=== PATIENT | female | born 1945 ===

== ENCOUNTER 2018-03-30 12:34 | Inpatient (IN) ==
[2018-03-30] MEDS ORDERED: diphenhydrAMINE 50 MG/1 ML VIAL IV ONE (15:11)
[2018-03-30 15:30] LABS: ABG Base Excess 9.4 MMOL/L (-2.5-2.5); ABG HCO3 33.1 MMOL/L (20-26); ABG Oxygen Saturation 96.4 % (95-100); ABG PCO2 57.8 MM HG (35-48); ABG PH 7.407 (7.35-7.45); ABG PO2 82.5 MM HG (80-95); ABG TCO2 31.9 MMOL/L (23-27); Allen Test Positive
[2018-03-30 15:59] LABS: Basophils % 0.5 % (0.0-0.8); Eosinophils # 0.2 10*3/uL (0.0-0.87); Hematocrit 38.8 VOL% (35.7-47.0); Hemoglobin 12.7 GM/DL (12.0-16.0); Immature Granulocytes Absolute 0.07 #; Lymphocytes # 1.2 10*3/uL (1.4-4.0); Lymphocytes % 16.9 % (21.3-54.2); Mean Corpuscular HGB Conc 32.7 GM/DL (32-36); Mean Corpuscular Hemoglobin 32 PG (27-34); Mean Corpuscular Volume 98.5 FL (87-102); Mean Platelet Volume 9.8 FL (9.6-12.0); Monocytes # 0.7 10*3/uL (0.11-0.8); Monocytes % 9.8 % (1.7-12.7); Neutrophils % 68.8 % (38.7-73.9); Platelet Count 171 T/CUMM (130-400); Red Blood Count 3.94 MC/CUMM (3.8-5.5); Red Cell Distribution Width 12.7 % (9.3-17.3); White Blood Count 7.3 T/CUMM (4-12)
[2018-03-30] MEDS ORDERED: DEXTROSE 50% 25 GM/50 ML VIAL IV PRN ×2 (16:13→17:55)
[2018-03-30] MEDS ORDERED: LACTULOSE 20 GM/30 ML UDCUP PO PRN (16:13)
[2018-03-30] MEDS ORDERED: DOCUSATE SODIUM 100 MG CAPSULE PO PRN (16:13)
[2018-03-30] MEDS ORDERED: GLUCAGON 1 MG VIAL IM PRN ×2 (16:13→17:55)
[2018-03-30] MEDS ORDERED: ACETAMINOPHEN 325 MG TABLET PO PRN (16:13)
[2018-03-30] MEDS ORDERED: MORPHINE 4 MG/1 ML VIAL IV PRN (16:13)
[2018-03-30] MEDS ORDERED: ONDANSETRON 4 MG/2 ML VIAL IV PRN (16:13)
[2018-03-30 16:30] LABS: Alanine Aminotransferase 19 U/L (13-56); Albumin 2.7 G/DL (3.4-5.0); Alkaline Phosphatase 222 U/L (45-117); Aspartate Amino Transferase 17 U/L (0-37); Blood Urea Nitrogen 13 MG/DL (7-18); Calcium 9.2 MG/DL (8.5-10.1); Glucose 272 MG/DL (74-106); Osmolality,Calculated 282.8 MOS/KG (273-304); Potassium 4.6 MMOL/L (3.5-5.1); Sodium 137 MMOL/L (136-145); Total Protein 7.2 G/DL (6.4-8.3); Troponin I Only 0.018 NG/ML (0.00-0.045)
[2018-03-30] MEDS ORDERED: ENOXAPARIN 100 MG/ML SYRINGE SUBCUT SCH (16:30)
[2018-03-30] MEDS ORDERED: FUROSEMIDE 40 MG/4 ML VIAL IV ONE (17:11)
[2018-03-30] MEDS ORDERED: ALBUTEROL 2.5 MG/3 ML NEB RESP TX PRN (17:12)
[2018-03-30] MEDS ORDERED: SENNA 8.6 MG TABLET PO PRN (17:12)
[2018-03-30] MEDS: INSULIN REGULAR 100 UNIT/ML SUBCUT SCH ×2 (18:04→20:55)
[2018-03-30] MEDS: INSULIN LISPRO 100 UNIT/ML SUBCUT SCH (18:07)
[2018-03-30] MEDS: metFORMIN 500 MG TABLET PO SCH (18:40)
[2018-03-30] MEDS: CALCIUM (CARBONATE)/VITAMIN D 600 MG-400 UNIT TABLET PO SCH (20:55)
[2018-03-30] MEDS: DOCUSATE SODIUM 100 MG CAPSULE PO SCH (20:56)
[2018-03-31] MEDS ORDERED: LEVOTHYROXINE 200 MCG TABLET PO SCH (07:00)
[2018-03-31] MEDS: INSULIN REGULAR 100 UNIT/ML SUBCUT SCH ×4 (08:25→21:47)
[2018-03-31] MEDS ORDERED: ENOXAPARIN 40 MG/0.4 ML SYRINGE SUBCUT SCH (09:00)
[2018-03-31] MEDS: ENOXAPARIN 40 MG/0.4 ML SYRINGE SUBCUT SCH (09:21)
[2018-03-31] MEDS: metFORMIN 500 MG TABLET PO SCH ×2 (09:21→17:34)
[2018-03-31] MEDS: MONTELUKAST 10 MG TABLET PO SCH (09:21)
[2018-03-31] MEDS: CALCIUM (CARBONATE)/VITAMIN D 600 MG-400 UNIT TABLET PO SCH ×2 (09:22→20:37)
[2018-03-31] MEDS: DOCUSATE SODIUM 100 MG CAPSULE PO SCH ×2 (09:22→20:37)
[2018-03-31] MEDS: PANTOPRAZOLE 40 MG TABLET PO SCH (09:22)
[2018-03-31] MEDS: SPIRONOLACTONE 25 MG TABLET PO SCH (09:22)
[2018-03-31] MEDS: INSULIN LISPRO 100 UNIT/ML SUBCUT SCH ×2 (09:25→17:34)
[2018-03-31] MEDS: INSULIN GLARGINE 100 UNIT/ML SUBCUT SCH (21:47)
[2018-04-01] MEDS: LEVOTHYROXINE 200 MCG TABLET PO SCH (05:51)
[2018-04-01 07:07] LABS: Basophils % 0.4 % (0.0-0.8); Eosinophils # 0.2 10*3/uL (0.0-0.87); Eosinophils % 3.6 % (0.00-10.9); Hematocrit 39.8 VOL% (35.7-47.0); Hemoglobin 13.5 GM/DL (12.0-16.0); Immature Granulocytes Absolute 0.07 #; Lymphocytes # 1.2 10*3/uL (1.4-4.0); Lymphocytes % 18.3 % (21.3-54.2); Mean Corpuscular HGB Conc 33.9 GM/DL (32-36); Mean Corpuscular Hemoglobin 32 PG (27-34); Mean Corpuscular Volume 93.6 FL (87-102); Monocytes # 0.9 10*3/uL (0.11-0.8); Monocytes % 13.2 % (1.7-12.7); Neutrophils # 4.3 10*3/uL (1.4-7.4); Neutrophils % 63.5 % (38.7-73.9); Platelet Count 198 T/CUMM (130-400); Red Blood Count 4.25 MC/CUMM (3.8-5.5); Red Cell Distribution Width 13.3 % (9.3-17.3); White Blood Count 6.7 T/CUMM (4-12)
[2018-04-01 07:25] LABS: Albumin 2.7 G/DL (3.4-5.0); Bilirubin,Total 0.9 MG/DL (0.2-1.0); Total Protein 6.6 G/DL (6.4-8.3)
[2018-04-01 07:26] LABS: Osmolality,Calculated 271.1 MOS/KG (273-304); Potassium 4.3 MMOL/L (3.5-5.1)
[2018-04-01] MEDS: INSULIN REGULAR 100 UNIT/ML SUBCUT SCH ×5 (09:13→22:43)
[2018-04-01] MEDS: metFORMIN 500 MG TABLET PO SCH ×2 (10:04→17:36)
[2018-04-01] MEDS: SPIRONOLACTONE 25 MG TABLET PO SCH (10:05)
[2018-04-01] MEDS: DOCUSATE SODIUM 100 MG CAPSULE PO SCH ×2 (10:05→22:42)
[2018-04-01] MEDS: MONTELUKAST 10 MG TABLET PO SCH (10:05)
[2018-04-01] MEDS: CALCIUM (CARBONATE)/VITAMIN D 600 MG-400 UNIT TABLET PO SCH ×2 (10:05→22:42)
[2018-04-01] MEDS: ENOXAPARIN 40 MG/0.4 ML SYRINGE SUBCUT SCH (10:05)
[2018-04-01] MEDS: PANTOPRAZOLE 40 MG TABLET PO SCH (10:05)
[2018-04-01] MEDS: INSULIN LISPRO 100 UNIT/ML SUBCUT SCH ×2 (10:06→17:36)
[2018-04-01] MEDS ORDERED: FUROSEMIDE 40 MG/4 ML VIAL IV ONE (10:51)
[2018-04-01] MEDS: INSULIN GLARGINE 100 UNIT/ML SUBCUT SCH (22:42)
[2018-04-02] MEDS: LEVOTHYROXINE 200 MCG TABLET PO SCH (06:53)
[2018-04-02 07:34] LABS: Basophils % 0.5 % (0.0-0.8); Eosinophils # 0.3 10*3/uL (0.0-0.87); Hemoglobin 14.4 GM/DL (12.0-16.0); Immature Granulocytes % 0.9 %; Immature Granulocytes Absolute 0.07 #; Lymphocytes # 2.3 10*3/uL (1.4-4.0); Lymphocytes % 27.9 % (21.3-54.2); Mean Corpuscular HGB Conc 34.3 GM/DL (32-36); Mean Corpuscular Hemoglobin 32 PG (27-34); Mean Corpuscular Volume 93.1 FL (87-102); Mean Platelet Volume 9.5 FL (9.6-12.0); Monocytes # 0.9 10*3/uL (0.11-0.8); Monocytes % 11.4 % (1.7-12.7); Neutrophils # 4.5 10*3/uL (1.4-7.4); Neutrophils % 55.3 % (38.7-73.9); Platelet Count 203 T/CUMM (130-400); Red Blood Count 4.51 MC/CUMM (3.8-5.5); Red Cell Distribution Width 13.2 % (9.3-17.3); White Blood Count 8.1 T/CUMM (4-12)
[2018-04-02 08:05] LABS: Albumin 2.9 G/DL (3.4-5.0); Bilirubin,Total 2.1 MG/DL (0.2-1.0); Calcium 8.6 MG/DL (8.5-10.1); Osmolality,Calculated 269.2 MOS/KG (273-304); Potassium 4.4 MMOL/L (3.5-5.1); Total Protein 7.3 G/DL (6.4-8.3)
[2018-04-02] MEDS: INSULIN REGULAR 100 UNIT/ML SUBCUT SCH ×2 (08:37→12:54)
[2018-04-02] MEDS: MONTELUKAST 10 MG TABLET PO SCH (09:41)
[2018-04-02] MEDS: SPIRONOLACTONE 25 MG TABLET PO SCH (09:41)
[2018-04-02] MEDS: CALCIUM (CARBONATE)/VITAMIN D 600 MG-400 UNIT TABLET PO SCH (09:42)
[2018-04-02] MEDS: INSULIN LISPRO 100 UNIT/ML SUBCUT SCH (09:42)
[2018-04-02] MEDS: metFORMIN 500 MG TABLET PO SCH (09:42)
[2018-04-02] MEDS: PANTOPRAZOLE 40 MG TABLET PO SCH (09:42)
[2018-04-02] MEDS: DOCUSATE SODIUM 100 MG CAPSULE PO SCH (09:42)
[2018-04-02] MEDS: ENOXAPARIN 40 MG/0.4 ML SYRINGE SUBCUT SCH (09:42)
[2018-04-02 12:40] VITALS: BP 154/81
== END 2018-04-02 14:45 | disposition swing bed (61) | DRG 204 ==
LOC: N.ICU 14:18 → SUATTDRO 14:54 → N.5E 03-31 11:55
PROVIDERS: ADMIT Internal Medicine; ATTEND Internal Medicine

== ENCOUNTER 2018-12-06 19:48 | Inpatient (IN) ==
[2018-12-06] MEDS ORDERED: ALBUTEROL 2.5 MG/3 ML NEB RESP TX PRN (22:12)
[2018-12-06] MEDS ORDERED: ACETAMINOPHEN 325 MG TABLET PO PRN (22:12)
[2018-12-06] MEDS ORDERED: DEXTROSE 50% 25 GM/50 ML VIAL IV PRN ×2 (22:12)
[2018-12-06] MEDS ORDERED: GLUCAGON 1 MG VIAL IM PRN ×2 (22:12)
[2018-12-06] MEDS ORDERED: MAGNESIUM SULF RIDER 2 GM in PREMIX 1 EACH IV PRN (22:42)
[2018-12-06] MEDS ORDERED: MAGNESIUM SULF RIDER 4 GM in PREMIX 1 EACH IV PRN (22:42)
[2018-12-06] MEDS: CEFTAROLINE 600 MG in SODIUM CHLORIDE 0.9% 100 ML IV SCH (23:42)
[2018-12-07] MEDS: ALBUTEROL/IPRATROPIUM 3 ML NEB RESP TX SCH ×4 (00:15→20:02)
[2018-12-07] MEDS: INSULIN REGULAR 100 UNIT/ML SUBCUT SCH ×4 (07:10→20:07)
[2018-12-07 07:25] LABS: Albumin 2.8 G/DL (3.4-5.0); Bilirubin,Total 0.5 MG/DL (0.2-1.0); Calcium 8.4 MG/DL (8.5-10.1); Osmolality,Calculated 283.1 MOS/KG (273-304); Potassium 3.9 MMOL/L (3.5-5.1); Total Protein 7.4 G/DL (6.4-8.3)
[2018-12-07 07:32] LABS: Basophils % 0.4 % (0.0-0.8); Eosinophils # 0.1 10*3/uL (0.0-0.87); Hematocrit 41.6 VOL% (35.7-47.0); Hemoglobin 12.2 GM/DL (12.0-16.0); Immature Granulocytes % 0.7 %; Immature Granulocytes Absolute 0.04 #; Lymphocytes # 0.9 10*3/uL (1.4-4.0); Lymphocytes % 15.4 % (21.3-54.2); Mean Corpuscular HGB Conc 29.3 GM/DL (32-36); Mean Corpuscular Hemoglobin 27 PG (27-34); Mean Corpuscular Volume 92.7 FL (87-102); Mean Platelet Volume 10.3 FL (9.6-12.0); Monocytes # 0.6 10*3/uL (0.11-0.8); Monocytes % 10.7 % (1.7-12.7); Neutrophils # 3.9 10*3/uL (1.4-7.4); Neutrophils % 70.8 % (38.7-73.9); Platelet Count 139 T/CUMM (130-400); Red Blood Count 4.49 MC/CUMM (3.8-5.5); Red Cell Distribution Width 14.1 % (9.3-17.3); White Blood Count 5.5 T/CUMM (4-12)
[2018-12-07] MEDS: ENOXAPARIN 40 MG/0.4 ML SYRINGE SUBCUT SCH (08:31)
[2018-12-07] MEDS: FUROSEMIDE 40 MG/4 ML VIAL IV SCH ×2 (08:32→16:05)
[2018-12-07] MEDS: predniSONE 20 MG TABLET PO SCH (08:32)
[2018-12-07] MEDS: BUDESONIDE/FORMOTEROL 160-4.5 INHALER 6 GM INH SCH ×2 (08:32→20:08)
[2018-12-07] MEDS ORDERED: PANTOPRAZOLE 40 MG TABLET PO SCH (09:00)
[2018-12-07] MEDS ORDERED: INFLUENZA VIRUS VACCINE 0.5 ML SYRINGE IM ONE (09:00)
[2018-12-07 11:00] LABS: Apearance,Urine CLEAR (Clear); Bacteria,Urine Occasional /HPF (Few); Bilirubin,Urine Negative (Negative); Blood, Urine Negative (Negative); Glucose,Urine (UA) Negative (Negative); Hyaline Casts,Urine 3 /LPF (0-3); Ketones,Urine Negative (Negative); Nitrite,Urine Negative (Negative); Protein,Urine Negative; Squamous Epithelial Cell,Urine Occasional /HPF (0-10); Urine Color Straw (Yellow); Urine Specific Gravity 1.005 (1.001-1.035); Urine Urobilinogen < 2.0 EU/DL (0.2-1.0); WBC,Urine <1 /HPF (0-6)
[2018-12-07] MEDS: CEFTAROLINE 600 MG in SODIUM CHLORIDE 0.9% 100 ML IV SCH ×2 (11:17→22:34)
[2018-12-08] MEDS: ALBUTEROL/IPRATROPIUM 3 ML NEB RESP TX SCH ×4 (00:33→20:17)
[2018-12-08] MEDS: ENOXAPARIN 40 MG/0.4 ML SYRINGE SUBCUT SCH (08:44)
[2018-12-08] MEDS: FUROSEMIDE 40 MG/4 ML VIAL IV SCH ×2 (08:44→17:37)
[2018-12-08] MEDS: predniSONE 20 MG TABLET PO SCH (08:44)
[2018-12-08] MEDS: BUDESONIDE/FORMOTEROL 160-4.5 INHALER 6 GM INH SCH (08:48)
[2018-12-08] MEDS: INSULIN REGULAR 100 UNIT/ML SUBCUT SCH ×4 (08:49→21:57)
[2018-12-08] MEDS ORDERED: CIPROFLOXACIN/DEXAMETHASONE OTIC SUSP 7.5 ML BOTTLE BOTH EARS SCH (10:00)
[2018-12-08] MEDS: CEFTAROLINE 600 MG in SODIUM CHLORIDE 0.9% 100 ML IV SCH (11:35)
[2018-12-08] MEDS: CIPROFLOXACIN 0.3% OPH SOLN 2.5 ML BOTTLE BOTH EYES SCH ×2 (13:34→22:16)
[2018-12-08] MEDS: DEXAMETHASONE 0.1% OPH SOLN 5 ML BOTTLE BOTH EYES SCH ×2 (13:35→22:16)
[2018-12-08] MEDS: GLIMEPIRIDE 4 MG TABLET PO SCH (17:37)
[2018-12-08] MEDS: metFORMIN 500 MG TABLET PO SCH (17:37)
[2018-12-08] MEDS: MINERAL OIL/PETROLATUM OPH OINT 3.5 GM TUBE BOTH EYES SCH ×2 (17:57→22:03)
[2018-12-08] MEDS: GABAPENTIN 100 MG CAPSULE PO SCH (21:56)
[2018-12-08] MEDS: MOMETASONE/FORMOTEROL 100-5 INHALER 8.8 GM INH SCH (21:57)
[2018-12-08] MEDS: DONEPEZIL 5 MG TABLET PO SCH (21:57)
[2018-12-08] MEDS: INSULIN GLARGINE 100 UNIT/ML SUBCUT SCH (21:58)
[2018-12-09] MEDS: CEFTAROLINE 600 MG in SODIUM CHLORIDE 0.9% 100 ML IV SCH ×2 (00:30→10:17)
[2018-12-09] MEDS: ALBUTEROL/IPRATROPIUM 3 ML NEB RESP TX SCH ×4 (01:34→19:27)
[2018-12-09] MEDS: LEVOTHYROXINE 100 MCG TABLET PO SCH (06:05)
[2018-12-09 06:41] LABS: Calcium 8.1 MG/DL (8.5-10.1); Osmolality,Calculated 290.1 MOS/KG (273-304); Potassium 3.8 MMOL/L (3.5-5.1)
[2018-12-09 06:54] LABS: Albumin 2.8 G/DL (3.4-5.0); Bilirubin,Total 0.9 MG/DL (0.2-1.0); Calcium 8.2 MG/DL (8.5-10.1); Osmolality,Calculated 291.1 MOS/KG (273-304); Potassium 3.7 MMOL/L (3.5-5.1); Risk Ratio 2.71; Total Protein 7.2 G/DL (6.4-8.3)
[2018-12-09 07:27] LABS: Basophils % 0.3 % (0.0-0.8); Eosinophils # 0.1 10*3/uL (0.0-0.87); Hematocrit 41.5 VOL% (35.7-47.0); Immature Granulocytes % 0.3 %; Immature Granulocytes Absolute 0.02 #; Lymphocytes # 1.4 10*3/uL (1.4-4.0); Lymphocytes % 20.1 % (21.3-54.2); Mean Corpuscular HGB Conc 29.4 GM/DL (32-36); Mean Corpuscular Hemoglobin 27 PG (27-34); Mean Corpuscular Volume 92.2 FL (87-102); Mean Platelet Volume 10.6 FL (9.6-12.0); Monocytes # 0.7 10*3/uL (0.11-0.8); Monocytes % 10.9 % (1.7-12.7); Neutrophils # 4.6 10*3/uL (1.4-7.4); Neutrophils % 67.4 % (38.7-73.9); Platelet Count 159 T/CUMM (130-400); Red Cell Distribution Width 13.7 % (9.3-17.3); White Blood Count 6.8 T/CUMM (4-12)
[2018-12-09 07:28] LABS: Hemoglobin 12.2 GM/DL (12.0-16.0)
[2018-12-09] MEDS: INSULIN REGULAR 100 UNIT/ML SUBCUT SCH ×4 (08:08→21:54)
[2018-12-09] MEDS: metFORMIN 500 MG TABLET PO SCH ×2 (10:07→16:20)
[2018-12-09] MEDS: MONTELUKAST 10 MG TABLET PO SCH (10:08)
[2018-12-09] MEDS: METOPROLOL SUCCINATE XL 25 MG TABLET PO SCH (10:08)
[2018-12-09] MEDS: predniSONE 20 MG TABLET PO SCH (10:08)
[2018-12-09] MEDS: LOSARTAN 50 MG TABLET PO SCH (10:08)
[2018-12-09] MEDS: ASPIRIN EC 81 MG TABLET PO SCH (10:08)
[2018-12-09] MEDS: GLIMEPIRIDE 4 MG TABLET PO SCH ×2 (10:08→16:20)
[2018-12-09] MEDS: SPIRONOLACTONE 25 MG TABLET PO SCH (10:08)
[2018-12-09] MEDS: ESCITALOPRAM 10 MG TABLET PO SCH (10:09)
[2018-12-09] MEDS: CALCIUM (CARBONATE)/VITAMIN D 600 MG-400 UNIT TABLET PO SCH (10:09)
[2018-12-09] MEDS: CETIRIZINE 10 MG TABLET PO SCH (10:09)
[2018-12-09] MEDS: FUROSEMIDE 40 MG/4 ML VIAL IV SCH ×2 (10:09→16:21)
[2018-12-09] MEDS: ENOXAPARIN 40 MG/0.4 ML SYRINGE SUBCUT SCH (10:10)
[2018-12-09] MEDS ORDERED: PANTOPRAZOLE 40 MG TABLET PO ONE (10:14)
[2018-12-09] MEDS: PANTOPRAZOLE 40 MG TABLET PO SCH (10:15)
[2018-12-09] MEDS: MOMETASONE/FORMOTEROL 100-5 INHALER 8.8 GM INH SCH ×2 (10:22→21:55)
[2018-12-09] MEDS: MINERAL OIL/PETROLATUM OPH OINT 3.5 GM TUBE BOTH EYES SCH ×3 (10:23→22:00)
[2018-12-09] MEDS: DEXAMETHASONE 0.1% OPH SOLN 5 ML BOTTLE BOTH EARS SCH ×2 (10:25→21:58)
[2018-12-09] MEDS: CIPROFLOXACIN 0.3% OPH SOLN 2.5 ML BOTTLE BOTH EARS SCH ×2 (10:25→23:03)
[2018-12-09] MEDS: GABAPENTIN 100 MG CAPSULE PO SCH (21:54)
[2018-12-09] MEDS: DONEPEZIL 5 MG TABLET PO SCH (21:54)
[2018-12-09] MEDS: INSULIN GLARGINE 100 UNIT/ML SUBCUT SCH (21:55)
[2018-12-10] MEDS: ALBUTEROL/IPRATROPIUM 3 ML NEB RESP TX SCH ×4 (01:08→19:16)
[2018-12-10] MEDS: LEVOTHYROXINE 100 MCG TABLET PO SCH (07:19)
[2018-12-10] MEDS: ASPIRIN EC 81 MG TABLET PO SCH (09:16)
[2018-12-10] MEDS: FUROSEMIDE 40 MG TABLET PO SCH ×2 (09:16→20:13)
[2018-12-10] MEDS: MONTELUKAST 10 MG TABLET PO SCH (09:16)
[2018-12-10] MEDS: METOPROLOL SUCCINATE XL 25 MG TABLET PO SCH (09:16)
[2018-12-10] MEDS: metFORMIN 500 MG TABLET PO SCH ×2 (09:16→20:13)
[2018-12-10] MEDS: CETIRIZINE 10 MG TABLET PO SCH (09:16)
[2018-12-10] MEDS: PANTOPRAZOLE 40 MG TABLET PO SCH (09:16)
[2018-12-10] MEDS: GLIMEPIRIDE 4 MG TABLET PO SCH ×2 (09:16→20:13)
[2018-12-10] MEDS: ESCITALOPRAM 10 MG TABLET PO SCH (09:16)
[2018-12-10] MEDS: CALCIUM (CARBONATE)/VITAMIN D 600 MG-400 UNIT TABLET PO SCH (09:16)
[2018-12-10] MEDS: ENOXAPARIN 40 MG/0.4 ML SYRINGE SUBCUT SCH (09:17)
[2018-12-10] MEDS: INSULIN REGULAR 100 UNIT/ML SUBCUT SCH ×3 (09:17→20:13)
[2018-12-10] MEDS: LOSARTAN 50 MG TABLET PO SCH (09:17)
[2018-12-10] MEDS: predniSONE 20 MG TABLET PO SCH (09:17)
[2018-12-10] MEDS: SPIRONOLACTONE 25 MG TABLET PO SCH (09:17)
[2018-12-10] MEDS: MOMETASONE/FORMOTEROL 100-5 INHALER 8.8 GM INH SCH (09:25)
[2018-12-10] MEDS: CIPROFLOXACIN 0.3% OPH SOLN 2.5 ML BOTTLE BOTH EARS SCH (09:25)
[2018-12-10] MEDS: MINERAL OIL/PETROLATUM OPH OINT 3.5 GM TUBE BOTH EYES SCH ×2 (09:26→14:47)
[2018-12-10] MEDS: DEXAMETHASONE 0.1% OPH SOLN 5 ML BOTTLE BOTH EARS SCH (09:26)
[2018-12-10 11:36] VITALS: BP 132/91
== END 2018-12-10 18:10 | disposition home or self-care (01) | DRG 291 ==
LOC: SUATTDRO 21:15 → N.CC 21:15 → N.2E 12-08 14:59
PROVIDERS: ADMIT Internal Medicine; ATTEND Internal Medicine Cardiovascular Disease

== ENCOUNTER 2019-02-18 12:36 | Inpatient (IN) ==
[2019-02-18] MEDS ORDERED: GLUCAGON 1 MG VIAL IM PRN (15:54)
[2019-02-18] MEDS ORDERED: DEXTROSE 50% 25 GM/50 ML SYRINGE IV PRN (15:54)
[2019-02-18] MEDS ORDERED: ONDANSETRON 4 MG/2 ML VIAL IV PRN (15:54)
[2019-02-18] MEDS ORDERED: DOCUSATE SODIUM 100 MG CAPSULE PO PRN (15:54)
[2019-02-18] MEDS ORDERED: ACETAMINOPHEN 325 MG TABLET PO PRN (15:54)
[2019-02-18] MEDS ORDERED: NITROGLYCERIN SL 0.4 MG TABLET SL PRN (16:00)
[2019-02-18] MEDS ORDERED: FUROSEMIDE 40 MG/4 ML VIAL IV ONE (16:35)
[2019-02-18 16:49] LABS: Risk Ratio 3.27; Thyroid Stimulating Hormone 1.79 uIU/ml (0.358-3.74); VLDL CHOLESTEROL 14.8 MG/DL
[2019-02-18] MEDS: metFORMIN 500 MG TABLET PO SCH (17:10)
[2019-02-18] MEDS: INSULIN LISPRO 100 UNIT/ML SUBCUT SCH ×2 (17:14→22:00)
[2019-02-18] MEDS: MOMETASONE/FORMOTEROL 100-5 INHALER 8.8 GM INH SCH (20:39)
[2019-02-18] MEDS ORDERED: INSULIN GLARGINE 100 UNIT/ML SUBCUT SCH (21:00)
[2019-02-18] MEDS ORDERED: ENOXAPARIN 40 MG/0.4 ML SYRINGE SUBCUT SCH (21:00)
[2019-02-18 21:08] LABS: INR 1.1; PT Patient Result 11.7 SECS; Partial Thromboplastin Time 26.6 SECS (0-40)
[2019-02-19 01:07] LABS: Albumin 2.8 G/DL (3.4-5.0); Bilirubin,Total 0.6 MG/DL (0.2-1.0); Calcium 7.8 MG/DL (8.5-10.1); Potassium 3.8 MMOL/L (3.5-5.1); Total Protein 6.7 G/DL (6.4-8.3)
[2019-02-19 01:08] LABS: Basophils % 0.4 % (0.0-0.8); Eosinophils # 0.2 10*3/uL (0.0-0.87); Eosinophils % 2.9 % (0.00-10.9); Hematocrit 42.4 VOL% (35.7-47.0); Hemoglobin 11.9 GM/DL (12.0-16.0); Immature Granulocytes % 0.2 %; Immature Granulocytes Absolute 0.01 #; Lymphocytes # 1.3 10*3/uL (1.4-4.0); Lymphocytes % 25.1 % (21.3-54.2); Mean Corpuscular HGB Conc 28.1 GM/DL (32-36); Mean Corpuscular Hemoglobin 25 PG (27-34); Mean Corpuscular Volume 88.1 FL (87-102); Mean Platelet Volume 10.3 FL (9.6-12.0); Monocytes # 0.5 10*3/uL (0.11-0.8); Monocytes % 9.9 % (1.7-12.7); Neutrophils # 3.2 10*3/uL (1.4-7.4); Neutrophils % 61.5 % (38.7-73.9); Platelet Count 156 T/CUMM (130-400); Red Blood Count 4.81 MC/CUMM (3.8-5.5); Red Cell Distribution Width 16.7 % (9.3-17.3); White Blood Count 5.2 T/CUMM (4-12)
[2019-02-19] MEDS ORDERED: LEVOTHYROXINE 25 MCG TABLET PO SCH (06:30)
[2019-02-19] MEDS: metFORMIN 500 MG TABLET PO SCH (08:50)
[2019-02-19] MEDS: MOMETASONE/FORMOTEROL 100-5 INHALER 8.8 GM INH SCH (08:52)
[2019-02-19] MEDS: INSULIN LISPRO 100 UNIT/ML SUBCUT SCH ×3 (08:54→16:54)
[2019-02-19] MEDS ORDERED: ESCITALOPRAM 10 MG TABLET PO SCH (09:00)
[2019-02-19] MEDS ORDERED: CALCIUM (CARBONATE)/VITAMIN D 600 MG-400 UNIT TABLET PO SCH (09:00)
[2019-02-19] MEDS ORDERED: MONTELUKAST 10 MG TABLET PO SCH (09:00)
[2019-02-19] MEDS ORDERED: SPIRONOLACTONE 25 MG TABLET PO SCH (09:00)
[2019-02-19] MEDS ORDERED: ASPIRIN CHEW 81 MG TABLET PO SCH (09:00)
[2019-02-19] MEDS ORDERED: PANTOPRAZOLE 40 MG TABLET PO SCH ×2 (09:00)
[2019-02-19 16:11] VITALS: BP 136/65
== END 2019-02-19 16:30 | disposition home or self-care (01) | DRG 204 ==
LOC: N.TELES → SUATTDRO 14:18
PROVIDERS: ADMIT Internal Medicine; ATTEND Internal Medicine

== ENCOUNTER 2019-03-24 11:14 | Inpatient (IN) ==
[2019-03-24] MEDS ORDERED: ACETAMINOPHEN 325 MG TABLET PO PRN (15:06)
[2019-03-24] MEDS ORDERED: ONDANSETRON 4 MG/2 ML VIAL IV PRN (15:06)
[2019-03-24 16:01] LABS: Basophils % 0.5 % (0.0-0.8); Eosinophils # 0.1 10*3/uL (0.0-0.87); Eosinophils % 2.3 % (0.00-10.9); Hematocrit 43.7 VOL% (35.7-47.0); Hemoglobin 11.8 GM/DL (12.0-16.0); Immature Granulocytes % 0.7 %; Immature Granulocytes Absolute 0.04 #; Lymphocytes # 1.2 10*3/uL (1.4-4.0); Lymphocytes % 18.8 % (21.3-54.2); Mean Corpuscular Volume 90.7 FL (87-102); Mean Platelet Volume 10.1 FL (9.6-12.0); Monocytes % 11.6 % (1.7-12.7); Neutrophils % 66.1 % (38.7-73.9); Platelet Count 158 T/CUMM (130-400); Red Blood Count 4.82 MC/CUMM (3.8-5.5); Red Cell Distribution Width 19.3 % (9.3-17.3); White Blood Count 6.1 T/CUMM (4-12)
[2019-03-24 16:18] LABS: Calcium 8.6 MG/DL (8.5-10.1); Osmolality,Calculated 302.3 MOS/KG (273-304)
[2019-03-24] MEDS ORDERED: SODIUM CHLORIDE 0.9% 1,000 ML IV SCH (16:30)
[2019-03-24 16:33] LABS: Eosinophils 3 % (0-10); Lymphocytes 18 % (20-55); Ovalocytes 1+; Platelet Estimate Normal; Segmented Neutrophils 66 % (50-85); Total Cells Counted 100
[2019-03-24 16:34] LABS: Hypochromasia 1+; Polychromasia Few
[2019-03-24] MEDS ORDERED: SODIUM CHLORIDE 0.9% 500 ML IV SCH (16:45)
[2019-03-24] MEDS ORDERED: GLUCAGON 1 MG VIAL IM PRN (16:46)
[2019-03-24] MEDS ORDERED: DEXTROSE 50% 25 GM/50 ML VIAL IV PRN (16:46)
[2019-03-24] MEDS ORDERED: ALBUTEROL/IPRATROPIUM 3 ML NEB RESP TX PRN (16:59)
[2019-03-24 17:02] LABS: Bilirubin,Direct 0.28 MG/DL (0.0-0.20); Bilirubin,Indirect 0.2 MG/DL (0.0-1.0); Bilirubin,Total 0.5 MG/DL (0.2-1.0); Total Protein 7.1 G/DL (6.4-8.3)
[2019-03-24] MEDS: LACTULOSE 20 GM/30 ML UDCUP PO SCH ×2 (18:11→23:28)
[2019-03-24] MEDS: INSULIN LISPRO 100 UNIT/ML SUBCUT SCH (20:47)
[2019-03-25] MEDS: LACTULOSE 20 GM/30 ML UDCUP PO SCH ×5 (05:52→23:33)
[2019-03-25 07:11] LABS: Basophils % 0.3 % (0.0-0.8); Eosinophils # 0.2 10*3/uL (0.0-0.87); Eosinophils % 2.7 % (0.00-10.9); Hematocrit 42.9 VOL% (35.7-47.0); Hemoglobin 11.9 GM/DL (12.0-16.0); Immature Granulocytes % 0.5 %; Immature Granulocytes Absolute 0.03 #; Lymphocytes % 17.4 % (21.3-54.2); Mean Corpuscular HGB Conc 27.7 GM/DL (32-36); Mean Corpuscular Volume 89.9 FL (87-102); Mean Platelet Volume 10.8 FL (9.6-12.0); NRBC # 0.02 10*3/uL; Neutrophils % 68.1 % (38.7-73.9); Platelet Count 168 T/CUMM (130-400); Red Blood Count 4.77 MC/CUMM (3.8-5.5); Red Cell Distribution Width 19.9 % (9.3-17.3)
[2019-03-25 07:18] LABS: Hypochromasia 1+; Ovalocytes Slight; Platelet Estimate Adequate
[2019-03-25 07:33] LABS: Bilirubin,Direct 0.24 MG/DL (0.0-0.20); Bilirubin,Indirect 0.4 MG/DL (0.0-1.0); Bilirubin,Total 0.6 MG/DL (0.2-1.0)
[2019-03-25] MEDS: INSULIN LISPRO 100 UNIT/ML SUBCUT SCH ×4 (07:45→21:25)
[2019-03-25 08:04] LABS: Calcium 8.6 MG/DL (8.5-10.1); Risk Ratio 2.77; Thyroid Stimulating Hormone 0.151 uIU/ml (0.358-3.74); VLDL CHOLESTEROL 19.6 MG/DL
[2019-03-25] MEDS ORDERED: ENOXAPARIN 40 MG/0.4 ML SYRINGE SUBCUT SCH (09:00)
[2019-03-25 14:01] LABS: Apearance,Urine CLOUDY (Clear); Blood, Urine Small mg/dL (Negative); Glucose,Urine (UA) Negative (Negative); Ketones,Urine 5 mg/dL (Negative); Nitrite,Urine Negative (Negative); Protein,Urine 100 MG/DL; Urine Color Amber (Yellow); Urine Specific Gravity 1.023 (1.001-1.035)
[2019-03-25 14:19] LABS: Bilirubin,Urine Small mg/dL (Negative)
[2019-03-25 14:20] LABS: Bacteria,Urine Trace /HPF (Few); Squamous Epithelial Cell,Urine Few /HPF (0-10)
[2019-03-25] MEDS ORDERED: SODIUM CHLORIDE 0.9% 1,000 ML IV SCH (15:00)
[2019-03-25] MEDS: cefTRIAXone 1,000 MG in SYRINGE 1 EACH IV SCH (16:00)
[2019-03-25] MEDS: ESCITALOPRAM 10 MG TABLET PO SCH (21:21)
[2019-03-25] MEDS: DONEPEZIL 5 MG TABLET PO SCH (21:21)
[2019-03-26] MEDS: LACTULOSE 20 GM/30 ML UDCUP PO SCH ×3 (06:32→17:40)
[2019-03-26 07:27] LABS: Calcium 8.2 MG/DL (8.5-10.1); Osmolality,Calculated 307.8 MOS/KG (273-304)
[2019-03-26 07:32] LABS: Albumin 2.9 G/DL (3.4-5.0); Bilirubin,Direct 0.22 MG/DL (0.0-0.20); Bilirubin,Indirect 0.7 MG/DL (0.0-1.0); Bilirubin,Total 0.9 MG/DL (0.2-1.0); Total Protein 6.7 G/DL (6.4-8.3)
[2019-03-26 07:34] LABS: Basophils % 0.7 % (0.0-0.8); Eosinophils # 0.2 10*3/uL (0.0-0.87); Eosinophils % 3.6 % (0.00-10.9); Hematocrit 40.5 VOL% (35.7-47.0); Immature Granulocytes % 0.4 %; Immature Granulocytes Absolute 0.02 #; Mean Corpuscular HGB Conc 27.7 GM/DL (32-36); Mean Corpuscular Volume 89.6 FL (87-102); Mean Platelet Volume 10.4 FL (9.6-12.0); Monocytes % 12.4 % (1.7-12.7); Neutrophils % 65.9 % (38.7-73.9); Platelet Count 153 T/CUMM (130-400); Red Blood Count 4.52 MC/CUMM (3.8-5.5); Red Cell Distribution Width 19.9 % (9.3-17.3); White Blood Count 5.6 T/CUMM (4-12)
[2019-03-26 07:35] LABS: Hemoglobin 11.2 GM/DL (12.0-16.0)
[2019-03-26 07:38] LABS: Platelet Estimate Adequate
[2019-03-26 07:39] LABS: Anisocytosis 1+
[2019-03-26] MEDS: INSULIN LISPRO 100 UNIT/ML SUBCUT SCH ×4 (07:50→20:59)
[2019-03-26] MEDS: ASPIRIN 325 MG TABLET PO SCH (09:00)
[2019-03-26] MEDS: ENOXAPARIN 30 MG/0.3 ML SYRINGE SUBCUT SCH (09:00)
[2019-03-26] MEDS: cefTRIAXone 1,000 MG in SYRINGE 1 EACH IV SCH (16:15)
[2019-03-26] MEDS: DONEPEZIL 5 MG TABLET PO SCH (20:58)
[2019-03-26] MEDS: ESCITALOPRAM 10 MG TABLET PO SCH (20:58)
[2019-03-27] MEDS: LACTULOSE 20 GM/30 ML UDCUP PO SCH ×3 (00:44→12:50)
[2019-03-27 06:30] LABS: Basophils % 0.4 % (0.0-0.8); Eosinophils # 0.1 10*3/uL (0.0-0.87); Eosinophils % 1.6 % (0.00-10.9); Hematocrit 44.1 VOL% (35.7-47.0); Hemoglobin 11.9 GM/DL (12.0-16.0); Immature Granulocytes % 0.7 %; Immature Granulocytes Absolute 0.05 #; Lymphocytes # 0.8 10*3/uL (1.4-4.0); Lymphocytes % 11.2 % (21.3-54.2); Mean Corpuscular Volume 90.4 FL (87-102); Mean Platelet Volume 9.4 FL (9.6-12.0); Monocytes % 10.7 % (1.7-12.7); Neutrophils % 75.4 % (38.7-73.9); Platelet Count 141 T/CUMM (130-400); Red Blood Count 4.88 MC/CUMM (3.8-5.5); Red Cell Distribution Width 20.1 % (9.3-17.3); White Blood Count 6.9 T/CUMM (4-12)
[2019-03-27 06:33] LABS: Albumin 2.9 G/DL (3.4-5.0); Bilirubin,Direct 0.3 MG/DL (0.0-0.20); Bilirubin,Indirect 0.4 MG/DL (0.0-1.0); Bilirubin,Total 0.7 MG/DL (0.2-1.0); Calcium 8.8 MG/DL (8.5-10.1); Total Protein 7.2 G/DL (6.4-8.3)
[2019-03-27 07:37] LABS: Hepatitis B Core IgM Quant < 0.05 Index; Hepatitis B Surface Ag Quant < 0.10 Index; Hepatitis B Surface Ag Result Negative (Negative); Hepatitis C Virus Ab Quant 0.21 Index; Hepatitis C Virus Ab Result Negative (Negative)
[2019-03-27] MEDS: ASPIRIN 325 MG TABLET PO SCH ×2 (09:24→10:32)
[2019-03-27] MEDS: ENOXAPARIN 30 MG/0.3 ML SYRINGE SUBCUT SCH (09:25)
[2019-03-27] MEDS: INSULIN LISPRO 100 UNIT/ML SUBCUT SCH ×4 (09:25→21:56)
[2019-03-27] MEDS ORDERED: FUROSEMIDE 40 MG/4 ML VIAL IV ONE (12:43)
[2019-03-27] MEDS ORDERED: VANCOMYCIN INJ 1,500 MG in SODIUM CHLORIDE 0.9% 500 ML IV ONE (13:00)
[2019-03-27] MEDS: cefTRIAXone 1,000 MG in SYRINGE 1 EACH IV SCH (15:21)
[2019-03-27] MEDS: LACTULOSE 20 GM/30 ML UDCUP RECTAL SCH ×2 (18:08→23:50)
[2019-03-27] MEDS: DONEPEZIL 5 MG TABLET PO SCH (21:56)
[2019-03-27] MEDS: ESCITALOPRAM 10 MG TABLET PO SCH (21:57)
[2019-03-28 06:13] LABS: Calcium 9.4 MG/DL (8.5-10.1); Osmolality,Calculated 323.9 MOS/KG (273-304)
[2019-03-28 06:30] LABS: Basophils % 0.4 % (0.0-0.8); Hematocrit 48.1 VOL% (35.7-47.0); Immature Granulocytes % 1.4 %; Immature Granulocytes Absolute 0.14 #; Lymphocytes # 0.6 10*3/uL (1.4-4.0); Lymphocytes % 5.4 % (21.3-54.2); Mean Corpuscular HGB Conc 26.8 GM/DL (32-36); Mean Platelet Volume 10.7 FL (9.6-12.0); Neutrophils % 82.8 % (38.7-73.9); Platelet Count 145 T/CUMM (130-400); Red Blood Count 5.23 MC/CUMM (3.8-5.5); Red Cell Distribution Width 20.9 % (9.3-17.3); White Blood Count 10.1 T/CUMM (4-12)
[2019-03-28 06:34] LABS: Hemoglobin 12.9 GM/DL (12.0-16.0)
[2019-03-28] MEDS: LACTULOSE 20 GM/30 ML UDCUP RECTAL SCH (06:36)
[2019-03-28 07:02] LABS: Anisocytosis 1+
[2019-03-28 07:03] LABS: Microcytosis Slight; Polychromasia Slight; Target Cells Slight
[2019-03-28 07:04] LABS: Ovalocytes Slight; Platelet Estimate Normal
[2019-03-28] MEDS ORDERED: LORazepam 2 MG/1 ML VIAL IV ONE (07:58)
[2019-03-28] MEDS ORDERED: LORazepam 2 MG/1 ML VIAL ONE (08:01)
[2019-03-28] MEDS ORDERED: LACTULOSE 320 GM/480 ML BOTTLE RECTAL SCH (09:00)
[2019-03-28] MEDS: ALBUTEROL/IPRATROPIUM 3 ML NEB RESP TX SCH ×3 (09:10→19:50)
[2019-03-28 09:15] LABS: ABG HCO3 26.1 MMOL/L (20-26); ABG Oxygen Saturation 94.8 % (95-100); ABG PH 7.218 (7.35-7.45); ABG PO2 80.9 MM HG (80-95); ABG TCO2 29.9 MMOL/L (23-27)
[2019-03-28 09:16] LABS: ABG PCO2 80.7 MM HG (35-48)
[2019-03-28] MEDS: ASPIRIN 325 MG TABLET PO SCH (09:42)
[2019-03-28] MEDS: INSULIN LISPRO 100 UNIT/ML SUBCUT SCH ×3 (09:42→17:30)
[2019-03-28] MEDS: ENOXAPARIN 30 MG/0.3 ML SYRINGE SUBCUT SCH (09:44)
[2019-03-28] MEDS: FUROSEMIDE 20 MG/2 ML VIAL IV SCH (09:45)
[2019-03-28] MEDS: LACTULOSE 320 GM/480 ML BOTTLE RECTAL SCH ×3 (10:26→22:00)
[2019-03-28 11:24] LABS: ABG Base Excess 3.4 MMOL/L (-2.5-2.5); ABG HCO3 27.3 MMOL/L (20-26); ABG Oxygen Saturation 91.7 % (95-100); ABG PH 7.277 (7.35-7.45); ABG PO2 66.8 MM HG (80-95); ABG TCO2 29.4 MMOL/L (23-27); Allen Test Positive; Pt O2 Delivery Device BIPAP
[2019-03-28 11:25] LABS: ABG PCO2 70.3 MM HG (35-48)
[2019-03-28 13:14] LABS: Calcium 9.7 MG/DL (8.5-10.1)
[2019-03-28] MEDS: DEXTROSE 5% 1,000 ML IV SCH (14:36)
[2019-03-28] MEDS: VANCOMYCIN INJ 1,250 MG in SODIUM CHLORIDE 0.9% 250 ML IV SCH (14:37)
[2019-03-28] MEDS: cefTRIAXone 1,000 MG in SYRINGE 1 EACH IV SCH (14:42)
[2019-03-28] MEDS: LORazepam 2 MG/1 ML VIAL IV PRN (23:50)
[2019-03-29] MEDS: DONEPEZIL 5 MG TABLET PO SCH ×2 (00:54→21:24)
[2019-03-29] MEDS: INSULIN LISPRO 100 UNIT/ML SUBCUT SCH ×5 (00:55→21:24)
[2019-03-29] MEDS: ESCITALOPRAM 10 MG TABLET PO SCH ×2 (00:55→21:24)
[2019-03-29] MEDS: VANCOMYCIN INJ 1,250 MG in SODIUM CHLORIDE 0.9% 250 ML IV SCH ×2 (01:18→13:22)
[2019-03-29] MEDS: ALBUTEROL/IPRATROPIUM 3 ML NEB RESP TX SCH ×4 (01:45→19:36)
[2019-03-29 04:28] LABS: ABG Base Excess 4.9 MMOL/L (-2.5-2.5); ABG HCO3 28.6 MMOL/L (20-26); ABG Oxygen Saturation 88.8 % (95-100); ABG PH 7.269 (7.35-7.45); ABG PO2 60.7 MM HG (80-95); ABG TCO2 31.3 MMOL/L (23-27); Allen Test Positive; Pt O2 Delivery Device BIPAP
[2019-03-29 04:31] LABS: ABG PCO2 76.1 MM HG (35-48)
[2019-03-29 05:49] LABS: Calcium 9.2 MG/DL (8.5-10.1); Osmolality,Calculated 340.8 MOS/KG (273-304)
[2019-03-29 05:58] LABS: Free T4 (Free Thyroxine) 1.18 NG/DL (0.76-1.46); Thyroid Stimulating Hormone 0.086 uIU/ml (0.358-3.74)
[2019-03-29 05:59] LABS: Basophils % 0.4 % (0.0-0.8); Eosinophils % 0.1 % (0.00-10.9); Hematocrit 45.3 VOL% (35.7-47.0); Hemoglobin 11.8 GM/DL (12.0-16.0); Immature Granulocytes % 0.8 %; Immature Granulocytes Absolute 0.07 #; Lymphocytes # 0.7 10*3/uL (1.4-4.0); Lymphocytes % 8.1 % (21.3-54.2); Mean Platelet Volume 10.2 FL (9.6-12.0); Monocytes % 12.2 % (1.7-12.7); Neutrophils % 78.4 % (38.7-73.9); Platelet Count 115 T/CUMM (130-400); Red Blood Count 4.82 MC/CUMM (3.8-5.5); Red Cell Distribution Width 20.9 % (9.3-17.3); White Blood Count 8.5 T/CUMM (4-12)
[2019-03-29 06:43] LABS: Platelet Estimate Adequate
[2019-03-29 06:44] LABS: Anisocytosis Slight
[2019-03-29] MEDS: ASPIRIN 325 MG TABLET PO SCH (09:01)
[2019-03-29] MEDS: LACTULOSE 320 GM/480 ML BOTTLE RECTAL SCH (09:15)
[2019-03-29] MEDS: DEXTROSE 5% 1,000 ML IV SCH (09:22)
[2019-03-29] MEDS: FUROSEMIDE 20 MG/2 ML VIAL IV SCH (09:30)
[2019-03-29] MEDS: ENOXAPARIN 30 MG/0.3 ML SYRINGE SUBCUT SCH (09:30)
[2019-03-29] MEDS ORDERED: ETOMIDATE 20 MG/10 ML VIAL IV ONE (10:22)
[2019-03-29] MEDS ORDERED: PROPOFOL 1,000 MG/100 ML BOTTLE IV ONE (10:22)
[2019-03-29] MEDS ORDERED: VECURONIUM 10 MG VIAL IV ONE (10:24)
[2019-03-29] MEDS: ALBUMIN 25% 25 GM in PREMIX 1 EACH IV SCH ×2 (10:30→18:24)
[2019-03-29] MEDS ORDERED: PIPERACILLIN/TAZOBACTAM 3,375 MG in SODIUM CHLORIDE 0.9% 100 ML IV SCH (10:30)
[2019-03-29] MEDS: PROPOFOL 1,000 MG/100 ML BOTTLE IV SCH (10:40)
[2019-03-29] MEDS ORDERED: SODIUM CHLORIDE 0.45% 500 ML IV ONE (10:41)
[2019-03-29] MEDS: BUDESONIDE 0.5 MG/2 ML NEB RESP TX SCH ×2 (10:52→19:36)
[2019-03-29 10:54] LABS: Amorphous Crystals,Urine Moderate /HPF (Few); Apearance,Urine CLOUDY (Clear); Bilirubin,Urine Negative (Negative); Blood, Urine Small mg/dL (Negative); Glucose,Urine (UA) 50 mg/dL (Negative); Hyaline Casts,Urine 51 /LPF (0-3); Ketones,Urine 5 mg/dL (Negative); Mucus,Urine Many /LPF (Occasional); Nitrite,Urine Negative (Negative); Protein,Urine 100 MG/DL; RBC,Urine 8 /HPF (0-4); Squamous Epithelial Cell,Urine Occasional /HPF (0-10); Urine Color Amber (Yellow); Urine Specific Gravity 1.017 (1.001-1.035); Urine Urobilinogen < 2.0 EU/DL (0.2-1.0)
[2019-03-29 11:56] LABS: ABG Base Excess 6.8 MMOL/L (-2.5-2.5); ABG HCO3 30.7 MMOL/L (20-26); ABG Oxygen Saturation 99.8 % (95-100); ABG PCO2 47.9 MM HG (35-48); ABG PH 7.435 (7.35-7.45); ABG TCO2 28.6 MMOL/L (23-27); Allen Test Positive; Pt O2 Delivery Device Ventilator
[2019-03-29] MEDS: methylPREDNISolone SOD SUC 40 MG/1 ML VIAL IV SCH ×2 (12:38→23:35)
[2019-03-29] MEDS: MEROPENEM 1,000 MG in SODIUM CHLORIDE 0.9% 100 ML IV SCH ×2 (12:38→18:24)
[2019-03-29] MEDS: fentaNYL INJ 1,250 MCG in SODIUM CHLORIDE 0.9% 225 ML IV PRN (13:32)
[2019-03-29] MEDS ORDERED: LACTULOSE 20 GM/30 ML UDCUP PO SCH (15:00)
[2019-03-29] MEDS: LACTULOSE 20 GM/30 ML UDCUP PO SCH (21:24)
[2019-03-30 02:31] LABS: Basophils % 0.1 % (0.0-0.8); Hematocrit 44.9 VOL% (35.7-47.0); Hemoglobin 11.9 GM/DL (12.0-16.0); Immature Granulocytes % 0.8 %; Immature Granulocytes Absolute 0.06 #; Lymphocytes # 0.8 10*3/uL (1.4-4.0); Lymphocytes % 10.1 % (21.3-54.2); Mean Corpuscular HGB Conc 26.5 GM/DL (32-36); Mean Corpuscular Volume 92.8 FL (87-102); Mean Platelet Volume 9.7 FL (9.6-12.0); Monocytes % 3.8 % (1.7-12.7); Neutrophils % 85.2 % (38.7-73.9); Platelet Count 77 T/CUMM (130-400); Red Blood Count 4.84 MC/CUMM (3.8-5.5); Red Cell Distribution Width 20.5 % (9.3-17.3); White Blood Count 7.6 T/CUMM (4-12)
[2019-03-30] MEDS: ALBUMIN 25% 25 GM in PREMIX 1 EACH IV SCH ×3 (02:32→18:01)
[2019-03-30] MEDS: MEROPENEM 1,000 MG in SODIUM CHLORIDE 0.9% 100 ML IV SCH ×3 (02:33→18:40)
[2019-03-30 02:50] LABS: Albumin 3.3 G/DL (3.4-5.0); Bilirubin,Total 1.7 MG/DL (0.2-1.0); Calcium 9.1 MG/DL (8.5-10.1); Osmolality,Calculated 342.9 MOS/KG (273-304); Total Protein 6.6 G/DL (6.4-8.3)
[2019-03-30] MEDS: VANCOMYCIN INJ 1,250 MG in SODIUM CHLORIDE 0.9% 250 ML IV SCH (02:59)
[2019-03-30 04:27] LABS: ABG Base Excess 3.9 MMOL/L (-2.5-2.5); ABG HCO3 27.9 MMOL/L (20-26); ABG Oxygen Saturation 99.5 % (95-100); ABG PCO2 36.5 MM HG (35-48); ABG PH 7.482 (7.35-7.45); ABG TCO2 24.1 MMOL/L (23-27); Allen Test Positive; Pt O2 Delivery Device Ventilator
[2019-03-30] MEDS: BUDESONIDE 0.5 MG/2 ML NEB RESP TX SCH ×2 (07:17→19:29)
[2019-03-30] MEDS: ALBUTEROL/IPRATROPIUM 3 ML NEB RESP TX SCH ×4 (07:17→19:29)
[2019-03-30] MEDS: ENOXAPARIN 30 MG/0.3 ML SYRINGE SUBCUT SCH (08:48)
[2019-03-30] MEDS: LACTULOSE 20 GM/30 ML UDCUP PO SCH ×2 (08:48→21:58)
[2019-03-30] MEDS: ASPIRIN 325 MG TABLET PO SCH (08:48)
[2019-03-30] MEDS: INSULIN LISPRO 100 UNIT/ML SUBCUT SCH ×4 (08:54→21:58)
[2019-03-30] MEDS: FUROSEMIDE 20 MG/2 ML VIAL IV SCH (09:53)
[2019-03-30] MEDS: PROPOFOL 1,000 MG/100 ML BOTTLE IV SCH (10:59)
[2019-03-30] MEDS: methylPREDNISolone SOD SUC 40 MG/1 ML VIAL IV SCH ×2 (11:00→21:59)
[2019-03-30] MEDS ORDERED: DEXTROSE 5% 1,000 ML IV SCH (13:30)
[2019-03-30] MEDS ORDERED: POTASSIUM CHLORIDE RIDER 100 ML IV ONE (13:31)
[2019-03-30] MEDS: INSULIN GLARGINE 100 UNIT/ML SUBCUT SCH ×2 (13:37→21:58)
[2019-03-30] MEDS: POTASSIUM CHLORIDE RIDER 10 MEQ in PREMIX 1 EACH IV SCH ×4 (13:38→16:36)
[2019-03-30 18:22] LABS: Calcium 8.9 MG/DL (8.5-10.1)
[2019-03-30] MEDS: DEXTROSE 5% 1,000 ML IV SCH (18:42)
[2019-03-30] MEDS ORDERED: INSULIN GLARGINE 100 UNIT/ML SUBCUT SCH (21:00)
[2019-03-30] MEDS: DONEPEZIL 5 MG TABLET PO SCH (21:57)
[2019-03-30] MEDS: ESCITALOPRAM 10 MG TABLET PO SCH (21:58)
[2019-03-31] MEDS: ALBUTEROL/IPRATROPIUM 3 ML NEB RESP TX SCH ×4 (00:13→19:00)
[2019-03-31] MEDS: MEROPENEM 1,000 MG in SODIUM CHLORIDE 0.9% 100 ML IV SCH ×3 (01:45→19:00)
[2019-03-31] MEDS: ALBUMIN 25% 25 GM in PREMIX 1 EACH IV SCH ×3 (02:00→19:26)
[2019-03-31] MEDS: DEXTROSE 5% 1,000 ML IV SCH ×2 (03:50→19:26)
[2019-03-31] MEDS: fentaNYL INJ 1,250 MCG in SODIUM CHLORIDE 0.9% 225 ML IV PRN ×2 (03:51→16:00)
[2019-03-31 04:36] LABS: ABG HCO3 25.3 MMOL/L (20-26); ABG Oxygen Saturation 97.8 % (95-100); ABG PCO2 42.4 MM HG (35-48); ABG PH 7.395 (7.35-7.45); ABG TCO2 23.3 MMOL/L (23-27); Allen Test Positive; Pt O2 Delivery Device Ventilator
[2019-03-31 05:08] LABS: Basophils % 0.1 % (0.0-0.8); Immature Granulocytes % 0.9 %; Immature Granulocytes Absolute 0.08 #; Lymphocytes # 0.3 10*3/uL (1.4-4.0); Lymphocytes % 3.7 % (21.3-54.2); Mean Corpuscular HGB Conc 28.1 GM/DL (32-36); Mean Corpuscular Volume 87.6 FL (87-102); Mean Platelet Volume 10.4 FL (9.6-12.0); Monocytes % 2.3 % (1.7-12.7); NRBC # 0.02 10*3/uL; Platelet Count 63 T/CUMM (130-400); Red Blood Count 4.43 MC/CUMM (3.8-5.5); Red Cell Distribution Width 20.4 % (9.3-17.3)
[2019-03-31 05:22] LABS: Calcium 8.8 MG/DL (8.5-10.1); Osmolality,Calculated 331.9 MOS/KG (273-304)
[2019-03-31 05:41] LABS: Hematocrit 38.4 VOL% (35.7-47.0)
[2019-03-31 05:54] LABS: Band Neutrophils 3 % (0-10); Lymphocytes 4 % (20-55); Segmented Neutrophils 92 % (50-85); Total Cells Counted 100
[2019-03-31 05:55] LABS: Anisocytosis 1+; Ovalocytes 1+
[2019-03-31 05:56] LABS: Hypochromasia Slight; Platelet Estimate Decreased; Target Cells Few
[2019-03-31] MEDS: BUDESONIDE 0.5 MG/2 ML NEB RESP TX SCH ×2 (07:09→19:00)
[2019-03-31] MEDS ORDERED: LEVOFLOXACIN 500 MG TABLET PER TUBE ONE (08:00)
[2019-03-31] MEDS ORDERED: VANCOMYCIN INJ 1,250 MG in SODIUM CHLORIDE 0.9% 250 ML IV SCH (09:00)
[2019-03-31] MEDS: LACTULOSE 20 GM/30 ML UDCUP PO SCH ×2 (09:09→21:54)
[2019-03-31] MEDS: INSULIN GLARGINE 100 UNIT/ML SUBCUT SCH ×2 (09:11→21:54)
[2019-03-31] MEDS: POTASSIUM CHLORIDE RIDER 10 MEQ in PREMIX 1 EACH IV SCH ×4 (09:12→12:15)
[2019-03-31] MEDS: INSULIN LISPRO 100 UNIT/ML SUBCUT SCH ×5 (09:13→23:29)
[2019-03-31] MEDS: LEVOTHYROXINE 100 MCG VIAL IV SCH (09:14)
[2019-03-31] MEDS: methylPREDNISolone SOD SUC 40 MG/1 ML VIAL IV SCH ×2 (16:00→22:11)
[2019-03-31] MEDS: PROPOFOL 1,000 MG/100 ML BOTTLE IV SCH (19:22)
[2019-03-31] MEDS: DONEPEZIL 5 MG TABLET PO SCH (21:54)
[2019-03-31] MEDS: ESCITALOPRAM 10 MG TABLET PO SCH (21:54)
[2019-03-31] MEDS: SODIUM CHLORIDE 23.4% CONC INJ 38.5 MEQ in STERILE WATER INJ 1,000 ML IV SCH (22:09)
[2019-04-01] MEDS: ALBUTEROL/IPRATROPIUM 3 ML NEB RESP TX SCH ×4 (01:24→20:12)
[2019-04-01] MEDS: ALBUMIN 25% 25 GM in PREMIX 1 EACH IV SCH ×3 (01:32→17:25)
[2019-04-01] MEDS: MEROPENEM 1,000 MG in SODIUM CHLORIDE 0.9% 100 ML IV SCH ×3 (01:33→18:22)
[2019-04-01] MEDS: fentaNYL INJ 1,250 MCG in SODIUM CHLORIDE 0.9% 225 ML IV PRN ×3 (02:24→21:48)
[2019-04-01 03:39] LABS: ABG Base Excess -2.8 MMOL/L (-2.5-2.5); ABG HCO3 22.1 MMOL/L (20-26); ABG Oxygen Saturation 98.1 % (95-100); ABG PCO2 50.6 MM HG (35-48); ABG PH 7.288 (7.35-7.45); ABG TCO2 22.2 MMOL/L (23-27); Allen Test Positive; Pt O2 Delivery Device Ventilator
[2019-04-01] MEDS: INSULIN LISPRO 100 UNIT/ML SUBCUT SCH ×5 (04:38→22:22)
[2019-04-01] MEDS: BUDESONIDE 0.5 MG/2 ML NEB RESP TX SCH ×2 (07:08→20:12)
[2019-04-01] MEDS: LEVOTHYROXINE 100 MCG VIAL IV SCH (08:00)
[2019-04-01] MEDS: LACTULOSE 20 GM/30 ML UDCUP PO SCH ×2 (09:38→22:23)
[2019-04-01] MEDS: INSULIN GLARGINE 100 UNIT/ML SUBCUT SCH ×2 (09:39→22:23)
[2019-04-01] MEDS: LEVOFLOXACIN 250 MG TABLET PER TUBE SCH (09:40)
[2019-04-01] MEDS: PROPOFOL 1,000 MG/100 ML BOTTLE IV SCH (11:03)
[2019-04-01] MEDS: methylPREDNISolone SOD SUC 40 MG/1 ML VIAL IV SCH ×2 (11:30→22:25)
[2019-04-01 17:02] LABS: Calcium 8.6 MG/DL (8.5-10.1); Osmolality,Calculated 303.1 MOS/KG (273-304)
[2019-04-01] MEDS ORDERED: SODIUM POLYSTYRENE SULFATE 15 GM/60 ML BOTTLE PO STA (21:45)
[2019-04-01] MEDS: SODIUM CHLORIDE 0.45% 1,000 ML IV SCH (21:48)
[2019-04-01] MEDS: SODIUM CHLORIDE 23.4% CONC INJ 38.5 MEQ in STERILE WATER INJ 1,000 ML IV SCH (21:49)
[2019-04-01] MEDS: ESCITALOPRAM 10 MG TABLET PO SCH (22:23)
[2019-04-01] MEDS: DONEPEZIL 5 MG TABLET PO SCH (22:23)
[2019-04-02] MEDS: ALBUTEROL/IPRATROPIUM 3 ML NEB RESP TX SCH ×4 (01:05→19:40)
[2019-04-02] MEDS: INSULIN LISPRO 100 UNIT/ML SUBCUT SCH ×6 (01:06→20:02)
[2019-04-02] MEDS: MEROPENEM 1,000 MG in SODIUM CHLORIDE 0.9% 100 ML IV SCH ×3 (02:51→18:58)
[2019-04-02] MEDS: ALBUMIN 25% 25 GM in PREMIX 1 EACH IV SCH (03:21)
[2019-04-02 04:21] LABS: ABG HCO3 20.2 MMOL/L (20-26); ABG Oxygen Saturation 96.8 % (95-100); ABG PCO2 49.7 MM HG (35-48); ABG PO2 95.6 MM HG (80-95); ABG TCO2 20.5 MMOL/L (23-27); Allen Test Positive; Pt O2 Delivery Device Ventilator
[2019-04-02 05:55] LABS: Basophils % 0.2 % (0.0-0.8); Hematocrit 36.3 VOL% (35.7-47.0); Hemoglobin 10.2 GM/DL (12.0-16.0); Immature Granulocytes % 1.6 %; Immature Granulocytes Absolute 0.19 #; Lymphocytes # 0.5 10*3/uL (1.4-4.0); Mean Corpuscular HGB Conc 28.1 GM/DL (32-36); Mean Corpuscular Volume 87.9 FL (87-102); Mean Platelet Volume 11.4 FL (9.6-12.0); Monocytes % 3.7 % (1.7-12.7); NRBC # 0.02 10*3/uL; Neutrophils % 90.5 % (38.7-73.9); Platelet Count 59 T/CUMM (130-400); Red Blood Count 4.13 MC/CUMM (3.8-5.5); Red Cell Distribution Width 19.9 % (9.3-17.3); White Blood Count 11.6 T/CUMM (4-12)
[2019-04-02 06:15] LABS: Calcium 8.6 MG/DL (8.5-10.1); Osmolality,Calculated 308.7 MOS/KG (273-304)
[2019-04-02 06:42] LABS: Band Neutrophils 1 % (0-10); Hypochromasia 1+; Lymphocytes 2 % (20-55); Ovalocytes Slight; Platelet Estimate Decreased; Segmented Neutrophils 95 % (50-85); Total Cells Counted 100
[2019-04-02] MEDS: fentaNYL INJ 1,250 MCG in SODIUM CHLORIDE 0.9% 225 ML IV PRN (06:51)
[2019-04-02] MEDS: BUDESONIDE 0.5 MG/2 ML NEB RESP TX SCH ×2 (07:20→19:40)
[2019-04-02] MEDS: SODIUM CHLORIDE 0.45% 1,000 ML IV SCH (07:46)
[2019-04-02] MEDS ORDERED: FUROSEMIDE 40 MG/4 ML VIAL IV ONE (09:05)
[2019-04-02] MEDS: LEVOTHYROXINE 100 MCG VIAL IV SCH (09:06)
[2019-04-02] MEDS: LEVOFLOXACIN 250 MG TABLET PER TUBE SCH (09:11)
[2019-04-02] MEDS: LACTULOSE 20 GM/30 ML UDCUP PO SCH ×2 (09:12→21:13)
[2019-04-02] MEDS: methylPREDNISolone SOD SUC 40 MG/1 ML VIAL IV SCH ×2 (09:43→20:03)
[2019-04-02] MEDS: INSULIN GLARGINE 100 UNIT/ML SUBCUT SCH ×2 (09:44→21:13)
[2019-04-02] MEDS: FLUCONAZOLE INJ 200 MG in PREMIX 1 EACH IV SCH (09:52)
[2019-04-02] MEDS: PROPOFOL 1,000 MG/100 ML BOTTLE IV SCH (10:42)
[2019-04-02] MEDS: DEXMEDETOMIDINE 200 MCG in SODIUM CHLORIDE 0.9% 48 ML IV PRN ×3 (11:28→22:45)
[2019-04-02] MEDS: METOCLOPRAMIDE 10 MG/10 ML UDCUP PO SCH ×2 (11:36→20:03)
[2019-04-02] MEDS: DONEPEZIL 5 MG TABLET PO SCH (21:12)
[2019-04-02] MEDS: ESCITALOPRAM 10 MG TABLET PO SCH (21:13)
[2019-04-02] MEDS: LORazepam 2 MG/1 ML VIAL IV PRN (21:44)
[2019-04-03] MEDS: INSULIN LISPRO 100 UNIT/ML SUBCUT SCH ×6 (00:03→21:18)
[2019-04-03] MEDS: ALBUTEROL/IPRATROPIUM 3 ML NEB RESP TX SCH ×4 (00:13→17:45)
[2019-04-03] MEDS: MEROPENEM 1,000 MG in SODIUM CHLORIDE 0.9% 100 ML IV SCH ×3 (02:23→18:26)
[2019-04-03 03:48] LABS: Allen Test Positive; Pt O2 Delivery Device Ventilator
[2019-04-03 03:53] LABS: ABG Base Excess -3.7 MMOL/L (-2.5-2.5); ABG HCO3 21.3 MMOL/L (20-26); ABG Oxygen Saturation 95.3 % (95-100); ABG PCO2 44.2 MM HG (35-48); ABG PH 7.316 (7.35-7.45); ABG TCO2 20.1 MMOL/L (23-27)
[2019-04-03] MEDS: METOCLOPRAMIDE 10 MG/10 ML UDCUP PO SCH ×3 (04:18→21:18)
[2019-04-03 05:12] LABS: Basophils % 0.1 % (0.0-0.8); Immature Granulocytes % 0.8 %; Immature Granulocytes Absolute 0.08 #; Lymphocytes # 0.4 10*3/uL (1.4-4.0); Lymphocytes % 3.8 % (21.3-54.2); Mean Corpuscular HGB Conc 28.8 GM/DL (32-36); Mean Corpuscular Volume 85.6 FL (87-102); Monocytes % 3.8 % (1.7-12.7); Neutrophils % 91.5 % (38.7-73.9); Platelet Count 59 T/CUMM (130-400); Red Blood Count 4.86 MC/CUMM (3.8-5.5); Red Cell Distribution Width 20.3 % (9.3-17.3); White Blood Count 9.6 T/CUMM (4-12)
[2019-04-03] MEDS: DEXMEDETOMIDINE 200 MCG in SODIUM CHLORIDE 0.9% 48 ML IV PRN ×2 (05:23→20:05)
[2019-04-03 05:24] LABS: Hematocrit 41.4 VOL% (35.7-47.0)
[2019-04-03 05:30] LABS: Calcium 9.1 MG/DL (8.5-10.1); Osmolality,Calculated 315.4 MOS/KG (273-304)
[2019-04-03 05:38] LABS: Anisocytosis Slight; Lymphocytes 4 % (20-55); Platelet Estimate Decreased; Segmented Neutrophils 93 % (50-85); Total Cells Counted 100
[2019-04-03] MEDS: LEVOTHYROXINE 100 MCG VIAL IV SCH (06:43)
[2019-04-03] MEDS: BUDESONIDE 0.5 MG/2 ML NEB RESP TX SCH ×2 (07:50→17:45)
[2019-04-03] MEDS: INSULIN GLARGINE 100 UNIT/ML SUBCUT SCH ×3 (08:20→21:19)
[2019-04-03] MEDS: LEVOFLOXACIN 250 MG TABLET PER TUBE SCH (08:20)
[2019-04-03] MEDS: methylPREDNISolone SOD SUC 40 MG/1 ML VIAL IV SCH ×2 (08:21→21:20)
[2019-04-03] MEDS: LACTULOSE 20 GM/30 ML UDCUP PO SCH ×2 (08:27→21:19)
[2019-04-03] MEDS: FLUCONAZOLE INJ 200 MG in PREMIX 1 EACH IV SCH (08:29)
[2019-04-03] MEDS: PROPOFOL 1,000 MG/100 ML BOTTLE IV SCH (10:39)
[2019-04-03] MEDS: DONEPEZIL 5 MG TABLET PO SCH (21:18)
[2019-04-03] MEDS: ESCITALOPRAM 10 MG TABLET PO SCH (21:19)
[2019-04-04] MEDS: ALBUTEROL/IPRATROPIUM 3 ML NEB RESP TX SCH ×4 (00:20→19:00)
[2019-04-04] MEDS: MEROPENEM 1,000 MG in SODIUM CHLORIDE 0.9% 100 ML IV SCH ×3 (01:52→18:37)
[2019-04-04] MEDS: LORazepam 2 MG/1 ML VIAL IV PRN (03:15)
[2019-04-04] MEDS: DEXMEDETOMIDINE 200 MCG in SODIUM CHLORIDE 0.9% 48 ML IV PRN ×3 (03:26→22:06)
[2019-04-04] MEDS: INSULIN LISPRO 100 UNIT/ML SUBCUT SCH ×6 (04:12→20:42)
[2019-04-04] MEDS: METOCLOPRAMIDE 10 MG/10 ML UDCUP PO SCH ×3 (04:13→20:42)
[2019-04-04 04:30] LABS: Basophils % 0.1 % (0.0-0.8); Hematocrit 40.6 VOL% (35.7-47.0); Hemoglobin 12.2 GM/DL (12.0-16.0); Immature Granulocytes % 0.6 %; Immature Granulocytes Absolute 0.07 #; Lymphocytes # 0.3 10*3/uL (1.4-4.0); Lymphocytes % 2.5 % (21.3-54.2); Mean Corpuscular Volume 82.2 FL (87-102); Monocytes % 4.8 % (1.7-12.7); Red Blood Count 4.94 MC/CUMM (3.8-5.5); Red Cell Distribution Width 20.7 % (9.3-17.3); White Blood Count 11.1 T/CUMM (4-12)
[2019-04-04 04:38] LABS: Platelet Count 69 T/CUMM (130-400)
[2019-04-04 04:46] LABS: Allen Test Positive; Pt O2 Delivery Device Ventilator
[2019-04-04 04:47] LABS: ABG Base Excess -0.6 MMOL/L (-2.5-2.5); ABG HCO3 23.9 MMOL/L (20-26); ABG Oxygen Saturation 97.7 % (95-100); ABG PCO2 32.5 MM HG (35-48); ABG PH 7.449 (7.35-7.45); ABG PO2 92.9 MM HG (80-95); ABG TCO2 19.7 MMOL/L (23-27)
[2019-04-04 04:50] LABS: Calcium 9.6 MG/DL (8.5-10.1); Osmolality,Calculated 323.7 MOS/KG (273-304)
[2019-04-04 04:56] LABS: Band Neutrophils 1 % (0-10); Lymphocytes 1 % (20-55); Platelet Estimate Decreased; Segmented Neutrophils 96 % (50-85); Total Cells Counted 100
[2019-04-04 04:57] LABS: Hypochromasia 1+
[2019-04-04] MEDS: LEVOTHYROXINE 100 MCG VIAL IV SCH (06:33)
[2019-04-04] MEDS: BUDESONIDE 0.5 MG/2 ML NEB RESP TX SCH ×2 (07:31→19:00)
[2019-04-04] MEDS: methylPREDNISolone SOD SUC 40 MG/1 ML VIAL IV SCH ×2 (08:47→20:43)
[2019-04-04] MEDS: INSULIN GLARGINE 100 UNIT/ML SUBCUT SCH ×2 (08:48→20:42)
[2019-04-04] MEDS: LEVOFLOXACIN 250 MG TABLET PER TUBE SCH (08:49)
[2019-04-04] MEDS: FLUCONAZOLE INJ 200 MG in PREMIX 1 EACH IV SCH (08:50)
[2019-04-04] MEDS: LACTULOSE 20 GM/30 ML UDCUP PO SCH ×2 (08:51→20:42)
[2019-04-04] MEDS: PROPOFOL 1,000 MG/100 ML BOTTLE IV SCH (10:42)
[2019-04-04] MEDS: ESCITALOPRAM 10 MG TABLET PO SCH (20:43)
[2019-04-04] MEDS: DONEPEZIL 5 MG TABLET PO SCH (20:43)
[2019-04-05] MEDS: INSULIN LISPRO 100 UNIT/ML SUBCUT SCH ×6 (00:17→20:17)
[2019-04-05] MEDS: ALBUTEROL/IPRATROPIUM 3 ML NEB RESP TX SCH ×4 (01:15→20:07)
[2019-04-05] MEDS: MEROPENEM 1,000 MG in SODIUM CHLORIDE 0.9% 100 ML IV SCH ×3 (03:12→18:33)
[2019-04-05 03:37] LABS: ABG Base Excess -2.2 MMOL/L (-2.5-2.5); ABG HCO3 22.6 MMOL/L (20-26); ABG PCO2 35.8 MM HG (35-48); ABG PH 7.398 (7.35-7.45); ABG TCO2 19.4 MMOL/L (23-27); Allen Test Positive; Pt O2 Delivery Device Ventilator
[2019-04-05] MEDS: METOCLOPRAMIDE 10 MG/10 ML UDCUP PO SCH ×3 (04:42→20:20)
[2019-04-05 05:32] LABS: Calcium 9.5 MG/DL (8.5-10.1); Osmolality,Calculated 323.6 MOS/KG (273-304)
[2019-04-05 06:20] LABS: Basophils % 0.1 % (0.0-0.8); Hematocrit 39.1 VOL% (35.7-47.0); Hemoglobin 11.9 GM/DL (12.0-16.0); Immature Granulocytes % 0.6 %; Immature Granulocytes Absolute 0.05 #; Lymphocytes # 0.3 10*3/uL (1.4-4.0); Lymphocytes % 2.9 % (21.3-54.2); Mean Corpuscular HGB Conc 30.4 GM/DL (32-36); Mean Corpuscular Volume 82.5 FL (87-102); Monocytes % 5.9 % (1.7-12.7); Neutrophils % 90.5 % (38.7-73.9); Red Blood Count 4.74 MC/CUMM (3.8-5.5); Red Cell Distribution Width 20.9 % (9.3-17.3); White Blood Count 8.5 T/CUMM (4-12)
[2019-04-05 06:23] LABS: Platelet Count 71 T/CUMM (130-400)
[2019-04-05 06:44] LABS: Lymphocytes 4 % (20-55); Segmented Neutrophils 91 % (50-85)
[2019-04-05 06:45] LABS: Ovalocytes 1+; Platelet Estimate Decreased; Total Cells Counted 100
[2019-04-05] MEDS: LEVOTHYROXINE 100 MCG VIAL IV SCH (06:53)
[2019-04-05] MEDS: BUDESONIDE 0.5 MG/2 ML NEB RESP TX SCH ×2 (07:26→20:07)
[2019-04-05] MEDS: LEVOFLOXACIN 250 MG TABLET PER TUBE SCH (07:40)
[2019-04-05] MEDS: INSULIN GLARGINE 100 UNIT/ML SUBCUT SCH ×2 (08:53→20:42)
[2019-04-05] MEDS: LACTULOSE 20 GM/30 ML UDCUP PO SCH ×2 (08:53→20:42)
[2019-04-05] MEDS: FLUCONAZOLE INJ 200 MG in PREMIX 1 EACH IV SCH (08:53)
[2019-04-05] MEDS: methylPREDNISolone SOD SUC 40 MG/1 ML VIAL IV SCH ×2 (08:54→20:41)
[2019-04-05] MEDS: PROPOFOL 1,000 MG/100 ML BOTTLE IV SCH (11:15)
[2019-04-05] MEDS: DEXMEDETOMIDINE 200 MCG in SODIUM CHLORIDE 0.9% 48 ML IV PRN (19:26)
[2019-04-05] MEDS: DONEPEZIL 5 MG TABLET PO SCH (20:42)
[2019-04-05] MEDS: ESCITALOPRAM 10 MG TABLET PO SCH (20:42)
[2019-04-06] MEDS: INSULIN LISPRO 100 UNIT/ML SUBCUT SCH ×6 (01:18→20:55)
[2019-04-06] MEDS: ALBUTEROL/IPRATROPIUM 3 ML NEB RESP TX SCH ×4 (01:24→19:07)
[2019-04-06 03:43] LABS: Allen Test Positive; Pt O2 Delivery Device Ventilator
[2019-04-06 03:44] LABS: ABG Base Excess -2.6 MMOL/L (-2.5-2.5); ABG HCO3 22.2 MMOL/L (20-26); ABG Oxygen Saturation 96.8 % (95-100); ABG PCO2 43.8 MM HG (35-48); ABG PH 7.334 (7.35-7.45); ABG TCO2 20.9 MMOL/L (23-27)
[2019-04-06 04:58] LABS: Calcium 9.6 MG/DL (8.5-10.1); Osmolality,Calculated 318.6 MOS/KG (273-304)
[2019-04-06 05:10] LABS: Basophils % 0.1 % (0.0-0.8); Hematocrit 39.6 VOL% (35.7-47.0); Hemoglobin 11.5 GM/DL (12.0-16.0); Immature Granulocytes % 0.4 %; Immature Granulocytes Absolute 0.03 #; Lymphocytes # 0.2 10*3/uL (1.4-4.0); Lymphocytes % 2.7 % (21.3-54.2); Mean Corpuscular Volume 84.3 FL (87-102); Mean Platelet Volume 11.5 FL (9.6-12.0); Monocytes % 6.3 % (1.7-12.7); Neutrophils % 90.5 % (38.7-73.9); Platelet Count 77 T/CUMM (130-400); Red Cell Distribution Width 21.3 % (9.3-17.3)
[2019-04-06 05:22] LABS: Lymphocytes 3 % (20-55); Segmented Neutrophils 90 % (50-85); Total Cells Counted 100
[2019-04-06] MEDS: METOCLOPRAMIDE 10 MG/10 ML UDCUP PO SCH ×3 (05:22→20:56)
[2019-04-06 05:23] LABS: Platelet Estimate Decreased
[2019-04-06] MEDS ORDERED: MIDAZOLAM 10 MG/2 ML VIAL ONE (05:49)
[2019-04-06] MEDS: DEXMEDETOMIDINE 200 MCG in SODIUM CHLORIDE 0.9% 48 ML IV PRN ×2 (06:32→22:45)
[2019-04-06] MEDS ORDERED: MIDAZOLAM 2 MG/2 ML VIAL IV ONE (06:47)
[2019-04-06] MEDS: LEVOTHYROXINE 100 MCG VIAL IV SCH (07:17)
[2019-04-06] MEDS: BUDESONIDE 0.5 MG/2 ML NEB RESP TX SCH ×2 (07:40→19:08)
[2019-04-06 07:41] LABS: ABG Base Excess -2.2 MMOL/L (-2.5-2.5); ABG HCO3 22.6 MMOL/L (20-26); ABG PH 7.403 (7.35-7.45); ABG TCO2 19.3 MMOL/L (23-27); Pt O2 Delivery Device Ventilator
[2019-04-06] MEDS: LEVOFLOXACIN 250 MG TABLET PER TUBE SCH (09:34)
[2019-04-06] MEDS: LACTULOSE 20 GM/30 ML UDCUP PO SCH ×2 (09:34→20:56)
[2019-04-06] MEDS: INSULIN GLARGINE 100 UNIT/ML SUBCUT SCH ×2 (09:34→20:57)
[2019-04-06] MEDS: FLUCONAZOLE INJ 200 MG in PREMIX 1 EACH IV SCH (09:34)
[2019-04-06] MEDS: methylPREDNISolone SOD SUC 40 MG/1 ML VIAL IV SCH ×2 (09:35→20:56)
[2019-04-06] MEDS ORDERED: FUROSEMIDE 40 MG/4 ML VIAL IV ONE (10:50)
[2019-04-06] MEDS: PROPOFOL 1,000 MG/100 ML BOTTLE IV SCH (10:56)
[2019-04-06 14:14] LABS: ABG Base Excess -2.9 MMOL/L (-2.5-2.5); ABG HCO3 24.1 MMOL/L (20-26); ABG Oxygen Saturation 93.1 % (95-100); ABG PCO2 51.6 MM HG (35-48); ABG PH 7.288 (7.35-7.45); ABG PO2 81.8 MM HG (80-95); ABG TCO2 25.7 MMOL/L (23-27); Pt O2 Delivery Device Ventilator
[2019-04-06] MEDS: ESCITALOPRAM 10 MG TABLET PO SCH (20:56)
[2019-04-06] MEDS: DONEPEZIL 5 MG TABLET PO SCH (20:56)
[2019-04-07] MEDS: ALBUTEROL/IPRATROPIUM 3 ML NEB RESP TX SCH ×4 (00:07→19:45)
[2019-04-07] MEDS: INSULIN LISPRO 100 UNIT/ML SUBCUT SCH ×7 (00:38→23:34)
[2019-04-07 03:24] LABS: ABG Base Excess -0.2 MMOL/L (-2.5-2.5); ABG HCO3 24.3 MMOL/L (20-26); ABG Oxygen Saturation 98.2 % (95-100); ABG PCO2 31.8 MM HG (35-48); ABG PH 7.463 (7.35-7.45); ABG TCO2 19.9 MMOL/L (23-27); Allen Test Positive; Pt O2 Delivery Device Ventilator
[2019-04-07 03:45] LABS: Hematocrit 38.8 VOL% (35.7-47.0); Hemoglobin 11.8 GM/DL (12.0-16.0); Immature Granulocytes % 0.6 %; Immature Granulocytes Absolute 0.04 #; Lymphocytes # 0.2 10*3/uL (1.4-4.0); Lymphocytes % 2.1 % (21.3-54.2); Mean Corpuscular HGB Conc 30.4 GM/DL (32-36); Mean Corpuscular Volume 82.4 FL (87-102); Mean Platelet Volume 12.3 FL (9.6-12.0); Monocytes % 7.3 % (1.7-12.7); Red Blood Count 4.71 MC/CUMM (3.8-5.5); Red Cell Distribution Width 21.2 % (9.3-17.3); White Blood Count 7.2 T/CUMM (4-12)
[2019-04-07 03:48] LABS: Platelet Count 97 T/CUMM (130-400)
[2019-04-07 04:03] LABS: Albumin 3.2 G/DL (3.4-5.0); Bilirubin,Total 1.4 MG/DL (0.2-1.0); Osmolality,Calculated 321.4 MOS/KG (273-304); Total Protein 5.3 G/DL (6.4-8.3)
[2019-04-07 04:42] LABS: Lymphocytes 2 % (20-55); Segmented Neutrophils 93 % (50-85); Total Cells Counted 100
[2019-04-07 04:43] LABS: Hypochromasia 2+; Platelet Estimate Decreased
[2019-04-07] MEDS: METOCLOPRAMIDE 10 MG/10 ML UDCUP PO SCH ×3 (05:28→21:01)
[2019-04-07] MEDS: LEVOTHYROXINE 100 MCG VIAL IV SCH (06:40)
[2019-04-07] MEDS: BUDESONIDE 0.5 MG/2 ML NEB RESP TX SCH ×2 (07:49→19:45)
[2019-04-07] MEDS: LACTULOSE 20 GM/30 ML UDCUP PO SCH ×2 (08:32→21:01)
[2019-04-07] MEDS: methylPREDNISolone SOD SUC 40 MG/1 ML VIAL IV SCH ×2 (08:32→21:02)
[2019-04-07] MEDS: LEVOFLOXACIN 250 MG TABLET PER TUBE SCH (08:33)
[2019-04-07] MEDS: INSULIN GLARGINE 100 UNIT/ML SUBCUT SCH ×2 (08:34→21:02)
[2019-04-07] MEDS: FLUCONAZOLE INJ 200 MG in PREMIX 1 EACH IV SCH (08:34)
[2019-04-07] MEDS: ZINC OXIDE PASTE 113 GM TUBE TOP SCH ×2 (11:44→21:01)
[2019-04-07] MEDS: DONEPEZIL 5 MG TABLET PO SCH (21:00)
[2019-04-07] MEDS: ESCITALOPRAM 10 MG TABLET PO SCH (21:00)
[2019-04-08] MEDS: ALBUTEROL/IPRATROPIUM 3 ML NEB RESP TX SCH ×4 (01:30→20:07)
[2019-04-08] MEDS: INSULIN LISPRO 100 UNIT/ML SUBCUT SCH ×5 (03:06→20:05)
[2019-04-08] MEDS: METOCLOPRAMIDE 10 MG/10 ML UDCUP PO SCH ×3 (04:25→21:55)
[2019-04-08] MEDS: LEVOTHYROXINE 100 MCG VIAL IV SCH (06:00)
[2019-04-08] MEDS: BUDESONIDE 0.5 MG/2 ML NEB RESP TX SCH ×2 (07:07→20:07)
[2019-04-08 08:39] LABS: Calcium 9.9 MG/DL (8.5-10.1); Osmolality,Calculated 316.3 MOS/KG (273-304)
[2019-04-08] MEDS: FLUCONAZOLE INJ 200 MG in PREMIX 1 EACH IV SCH (08:57)
[2019-04-08] MEDS: ZINC OXIDE PASTE 113 GM TUBE TOP SCH ×2 (08:57→21:59)
[2019-04-08] MEDS: LEVOFLOXACIN 250 MG TABLET PER TUBE SCH (08:57)
[2019-04-08] MEDS: LACTULOSE 20 GM/30 ML UDCUP PO SCH ×2 (08:57→21:59)
[2019-04-08] MEDS: INSULIN GLARGINE 100 UNIT/ML SUBCUT SCH ×2 (08:57→20:51)
[2019-04-08] MEDS: methylPREDNISolone SOD SUC 40 MG/1 ML VIAL IV SCH ×2 (08:57→21:58)
[2019-04-08] MEDS: DEXTROSE 5% 1,000 ML IV SCH (14:36)
[2019-04-08] MEDS: DONEPEZIL 5 MG TABLET PO SCH (21:58)
[2019-04-08] MEDS: ESCITALOPRAM 10 MG TABLET PO SCH (21:59)
[2019-04-09] MEDS: ALBUTEROL/IPRATROPIUM 3 ML NEB RESP TX SCH ×4 (00:05→19:23)
[2019-04-09] MEDS: INSULIN LISPRO 100 UNIT/ML SUBCUT SCH ×6 (01:10→21:57)
[2019-04-09] MEDS: METOCLOPRAMIDE 10 MG/10 ML UDCUP PO SCH (04:42)
[2019-04-09] MEDS: BUDESONIDE 0.5 MG/2 ML NEB RESP TX SCH ×2 (07:36→19:23)
[2019-04-09] MEDS: methylPREDNISolone SOD SUC 40 MG/1 ML VIAL IV SCH (10:30)
[2019-04-09] MEDS: LACTULOSE 20 GM/30 ML UDCUP PO SCH ×2 (10:30→22:05)
[2019-04-09] MEDS: LEVOTHYROXINE 100 MCG VIAL IV SCH (10:34)
[2019-04-09] MEDS: DEXTROSE 5% 1,000 ML IV SCH (10:36)
[2019-04-09] MEDS: INSULIN GLARGINE 100 UNIT/ML SUBCUT SCH ×2 (10:37→21:58)
[2019-04-09] MEDS: FLUCONAZOLE INJ 200 MG in PREMIX 1 EACH IV SCH (10:39)
[2019-04-09] MEDS: ZINC OXIDE PASTE 113 GM TUBE TOP SCH ×2 (10:39→22:05)
[2019-04-09] MEDS ORDERED: cloNIDine 0.1 MG TABLET PO PRN (14:43)
[2019-04-09] MEDS: LOSARTAN 50 MG TABLET PO SCH (14:49)
[2019-04-09] MEDS: ESCITALOPRAM 10 MG TABLET PO SCH (21:58)
[2019-04-09] MEDS: DONEPEZIL 5 MG TABLET PO SCH (21:58)
[2019-04-10] MEDS: INSULIN LISPRO 100 UNIT/ML SUBCUT SCH ×6 (00:20→21:35)
[2019-04-10] MEDS: ALBUTEROL/IPRATROPIUM 3 ML NEB RESP TX SCH ×4 (01:24→19:56)
[2019-04-10 06:05] LABS: Albumin 3.3 G/DL (3.4-5.0); Bilirubin,Total 2.2 MG/DL (0.2-1.0); Calcium 9.9 MG/DL (8.5-10.1); Osmolality,Calculated 317.9 MOS/KG (273-304); Total Protein 5.6 G/DL (6.4-8.3)
[2019-04-10] MEDS: BUDESONIDE 0.5 MG/2 ML NEB RESP TX SCH ×2 (07:12→19:56)
[2019-04-10] MEDS: INSULIN GLARGINE 100 UNIT/ML SUBCUT SCH ×2 (08:48→21:38)
[2019-04-10] MEDS: LOSARTAN 50 MG TABLET PO SCH (08:48)
[2019-04-10] MEDS: ZINC OXIDE PASTE 113 GM TUBE TOP SCH ×2 (08:48→21:49)
[2019-04-10] MEDS: predniSONE 10 MG TABLET PO SCH (08:48)
[2019-04-10] MEDS: DEXTROSE 5% 1,000 ML IV SCH (08:51)
[2019-04-10] MEDS: LACTULOSE 20 GM/30 ML UDCUP PO SCH ×2 (08:55→21:38)
[2019-04-10] MEDS ORDERED: LEVOTHYROXINE 200 MCG TABLET PO SCH (09:00)
[2019-04-10] MEDS ORDERED: MORPHINE 4 MG/1 ML VIAL IV PRN (11:06)
[2019-04-10] MEDS: PANTOPRAZOLE 40 MG TABLET PO SCH (12:25)
[2019-04-10] MEDS: FUROSEMIDE 40 MG/4 ML VIAL IV SCH (16:03)
[2019-04-10] MEDS: ESCITALOPRAM 10 MG TABLET PO SCH (21:37)
[2019-04-10] MEDS: DONEPEZIL 5 MG TABLET PO SCH (21:37)
[2019-04-11] MEDS: INSULIN LISPRO 100 UNIT/ML SUBCUT SCH ×6 (00:20→22:47)
[2019-04-11] MEDS: ALBUTEROL/IPRATROPIUM 3 ML NEB RESP TX SCH ×4 (01:59→20:07)
[2019-04-11 05:36] LABS: Eosinophils % 0.4 % (0.00-10.9); Immature Granulocytes % 0.5 %; Immature Granulocytes Absolute 0.05 #; Lymphocytes # 0.6 10*3/uL (1.4-4.0); Lymphocytes % 6.3 % (21.3-54.2); Mean Corpuscular HGB Conc 27.9 GM/DL (32-36); Mean Corpuscular Volume 89.5 FL (87-102); Monocytes % 7.8 % (1.7-12.7); Platelet Count 71 T/CUMM (130-400); Red Cell Distribution Width 21.9 % (9.3-17.3); White Blood Count 9.5 T/CUMM (4-12)
[2019-04-11 05:39] LABS: Hemoglobin 9.6 GM/DL (12.0-16.0)
[2019-04-11 06:04] LABS: Band Neutrophils 1 % (0-10); Eosinophils 1 % (0-10); Lymphocytes 4 % (20-55); Segmented Neutrophils 86 % (50-85); Total Cells Counted 100
[2019-04-11 06:05] LABS: Anisocytosis 1+; Basophilic Stippling Slight; Macrocytosis Slight; Platelet Estimate Decreased; Target Cells Few
[2019-04-11] MEDS: LEVOTHYROXINE 200 MCG TABLET PO SCH (06:06)
[2019-04-11 06:07] LABS: Albumin 2.9 G/DL (3.4-5.0); Calcium 9.4 MG/DL (8.5-10.1); Osmolality,Calculated 317.6 MOS/KG (273-304); Total Protein 5.1 G/DL (6.4-8.3)
[2019-04-11] MEDS: DEXTROSE 5% 1,000 ML IV SCH ×2 (06:07→14:06)
[2019-04-11] MEDS: BUDESONIDE 0.5 MG/2 ML NEB RESP TX SCH ×2 (07:35→20:07)
[2019-04-11] MEDS: INSULIN GLARGINE 100 UNIT/ML SUBCUT SCH ×2 (08:32→22:46)
[2019-04-11] MEDS: LACTULOSE 20 GM/30 ML UDCUP PO SCH ×2 (09:29→22:11)
[2019-04-11] MEDS: FUROSEMIDE 40 MG/4 ML VIAL IV SCH ×2 (09:29→15:53)
[2019-04-11] MEDS: LOSARTAN 50 MG TABLET PO SCH (09:29)
[2019-04-11] MEDS: predniSONE 10 MG TABLET PO SCH (09:29)
[2019-04-11] MEDS: PANTOPRAZOLE 40 MG TABLET PO SCH (09:29)
[2019-04-11] MEDS: ZINC OXIDE PASTE 113 GM TUBE TOP SCH ×2 (09:29→22:11)
[2019-04-11] MEDS ORDERED: TUBERCULIN SKIN TEST 0.1 ML SYRINGE INTRADERM ONE (12:42)
[2019-04-11] MEDS: ESCITALOPRAM 10 MG TABLET PO SCH (22:11)
[2019-04-11] MEDS: DONEPEZIL 5 MG TABLET PO SCH (22:11)
[2019-04-12] MEDS: INSULIN LISPRO 100 UNIT/ML SUBCUT SCH ×5 (00:25→23:01)
[2019-04-12] MEDS: ALBUTEROL/IPRATROPIUM 3 ML NEB RESP TX SCH ×4 (02:23→19:31)
[2019-04-12] MEDS: LEVOTHYROXINE 200 MCG TABLET PO SCH (06:28)
[2019-04-12 07:27] LABS: Calcium 9.6 MG/DL (8.5-10.1); Osmolality,Calculated 304.3 MOS/KG (273-304)
[2019-04-12] MEDS: BUDESONIDE 0.5 MG/2 ML NEB RESP TX SCH ×2 (07:45→19:31)
[2019-04-12] MEDS: LOSARTAN 50 MG TABLET PO SCH (08:36)
[2019-04-12] MEDS: INSULIN GLARGINE 100 UNIT/ML SUBCUT SCH ×2 (08:36→23:00)
[2019-04-12] MEDS: LACTULOSE 20 GM/30 ML UDCUP PO SCH ×2 (08:36→23:22)
[2019-04-12] MEDS: predniSONE 10 MG TABLET PO SCH (08:37)
[2019-04-12] MEDS: ZINC OXIDE PASTE 113 GM TUBE TOP SCH ×2 (08:37→23:05)
[2019-04-12] MEDS: PANTOPRAZOLE 40 MG TABLET PO SCH (08:37)
[2019-04-12] MEDS: ESCITALOPRAM 10 MG TABLET PO SCH (23:00)
[2019-04-12] MEDS: DONEPEZIL 5 MG TABLET PO SCH (23:00)
[2019-04-13] MEDS: ALBUTEROL/IPRATROPIUM 3 ML NEB RESP TX SCH ×4 (01:40→19:26)
[2019-04-13] MEDS: INSULIN LISPRO 100 UNIT/ML SUBCUT SCH ×6 (01:44→22:02)
[2019-04-13] MEDS: DEXTROSE 5% 1,000 ML IV SCH (02:37)
[2019-04-13 03:33] LABS: Basophils % 0.2 % (0.0-0.8); Eosinophils # 0.1 10*3/uL (0.0-0.87); Eosinophils % 2.3 % (0.00-10.9); Hematocrit 30.2 VOL% (35.7-47.0); Hemoglobin 8.6 GM/DL (12.0-16.0); Immature Granulocytes % 0.3 %; Immature Granulocytes Absolute 0.02 #; Lymphocytes # 0.8 10*3/uL (1.4-4.0); Lymphocytes % 13.9 % (21.3-54.2); Mean Corpuscular HGB Conc 28.5 GM/DL (32-36); Mean Corpuscular Volume 87.8 FL (87-102); Mean Platelet Volume 12.2 FL (9.6-12.0); Monocytes % 10.4 % (1.7-12.7); Neutrophils % 72.9 % (38.7-73.9); Platelet Count 74 T/CUMM (130-400); Red Blood Count 3.44 MC/CUMM (3.8-5.5); Red Cell Distribution Width 20.7 % (9.3-17.3); White Blood Count 6.1 T/CUMM (4-12)
[2019-04-13 03:34] LABS: Calcium 9.1 MG/DL (8.5-10.1); Osmolality,Calculated 294.7 MOS/KG (273-304)
[2019-04-13 03:46] LABS: Anisocytosis 1+; Platelet Estimate Decreased
[2019-04-13] MEDS: LEVOTHYROXINE 200 MCG TABLET PO SCH (06:28)
[2019-04-13] MEDS: BUDESONIDE 0.5 MG/2 ML NEB RESP TX SCH ×2 (07:27→19:26)
[2019-04-13] MEDS: LACTULOSE 20 GM/30 ML UDCUP PO SCH ×2 (09:10→22:07)
[2019-04-13] MEDS: INSULIN GLARGINE 100 UNIT/ML SUBCUT SCH ×2 (09:10→22:02)
[2019-04-13] MEDS: PANTOPRAZOLE 40 MG TABLET PO SCH (09:11)
[2019-04-13] MEDS: LOSARTAN 50 MG TABLET PO SCH (09:11)
[2019-04-13] MEDS: ZINC OXIDE PASTE 113 GM TUBE TOP SCH ×2 (09:11→21:00)
[2019-04-13] MEDS: predniSONE 10 MG TABLET PO SCH (09:11)
[2019-04-13] MEDS: ESCITALOPRAM 10 MG TABLET PO SCH (22:01)
[2019-04-13] MEDS: DONEPEZIL 5 MG TABLET PO SCH (22:02)
[2019-04-14] MEDS: INSULIN LISPRO 100 UNIT/ML SUBCUT SCH ×6 (00:21→21:18)
[2019-04-14] MEDS: ALBUTEROL/IPRATROPIUM 3 ML NEB RESP TX SCH ×4 (00:56→18:56)
[2019-04-14 04:48] LABS: Eosinophils # 0.2 10*3/uL (0.0-0.87); Eosinophils % 3.3 % (0.00-10.9); Immature Granulocytes % 0.3 %; Immature Granulocytes Absolute 0.02 #; Lymphocytes # 0.9 10*3/uL (1.4-4.0); Lymphocytes % 15.1 % (21.3-54.2); Mean Corpuscular HGB Conc 28.6 GM/DL (32-36); Mean Corpuscular Volume 86.7 FL (87-102); Mean Platelet Volume 11.9 FL (9.6-12.0); Monocytes % 9.2 % (1.7-12.7); Neutrophils % 72.1 % (38.7-73.9); Platelet Count 71 T/CUMM (130-400); Red Blood Count 3.23 MC/CUMM (3.8-5.5); Red Cell Distribution Width 20.1 % (9.3-17.3); White Blood Count 5.8 T/CUMM (4-12)
[2019-04-14 05:04] LABS: Calcium 8.7 MG/DL (8.5-10.1); Osmolality,Calculated 295.4 MOS/KG (273-304)
[2019-04-14 05:19] LABS: Eosinophils 4 % (0-10); Hypochromasia 1+; Lymphocytes 11 % (20-55); Platelet Estimate Decreased; Segmented Neutrophils 74 % (50-85); Total Cells Counted 100
[2019-04-14] MEDS: LEVOTHYROXINE 200 MCG TABLET PO SCH (06:16)
[2019-04-14] MEDS: BUDESONIDE 0.5 MG/2 ML NEB RESP TX SCH ×2 (07:11→18:58)
[2019-04-14] MEDS: INSULIN GLARGINE 100 UNIT/ML SUBCUT SCH (09:11)
[2019-04-14] MEDS: LACTULOSE 20 GM/30 ML UDCUP PO SCH (09:11)
[2019-04-14] MEDS: predniSONE 10 MG TABLET PO SCH (09:11)
[2019-04-14] MEDS: LOSARTAN 50 MG TABLET PO SCH (09:12)
[2019-04-14] MEDS: ZINC OXIDE PASTE 113 GM TUBE TOP SCH ×2 (09:12→20:46)
[2019-04-14] MEDS: PANTOPRAZOLE 40 MG TABLET PO SCH (09:12)
[2019-04-14] MEDS ORDERED: LACTULOSE 20 GM/30 ML UDCUP PO ONE (10:16)
[2019-04-14] MEDS: FUROSEMIDE 40 MG TABLET PO SCH (11:20)
[2019-04-14] MEDS ORDERED: SODIUM POLYSTYRENE SULFATE 15 GM/60 ML BOTTLE PO ONE (11:30)
[2019-04-14] MEDS: DEXTROSE 5% 1,000 ML IV SCH (11:57)
[2019-04-14] MEDS: ESCITALOPRAM 10 MG TABLET PO SCH (20:46)
[2019-04-14] MEDS: DONEPEZIL 5 MG TABLET PO SCH (20:46)
[2019-04-15] MEDS: INSULIN LISPRO 100 UNIT/ML SUBCUT SCH ×3 (00:20→07:48)
[2019-04-15] MEDS: ALBUTEROL/IPRATROPIUM 3 ML NEB RESP TX SCH ×2 (01:45→07:21)
[2019-04-15] MEDS: DEXTROSE 5% 1,000 ML IV SCH (05:45)
[2019-04-15] MEDS: LEVOTHYROXINE 200 MCG TABLET PO SCH (05:52)
[2019-04-15] MEDS: BUDESONIDE 0.5 MG/2 ML NEB RESP TX SCH (07:21)
[2019-04-15 07:23] VITALS: BP 151/82
[2019-04-15] MEDS: LOSARTAN 50 MG TABLET PO SCH (08:55)
[2019-04-15] MEDS: predniSONE 10 MG TABLET PO SCH (08:56)
[2019-04-15] MEDS: FUROSEMIDE 40 MG TABLET PO SCH (08:56)
[2019-04-15] MEDS: PANTOPRAZOLE 40 MG TABLET PO SCH (08:56)
[2019-04-15] MEDS ORDERED: INSULIN GLARGINE 100 UNIT/ML SUBCUT SCH (09:00)
[2019-04-15] MEDS: ZINC OXIDE PASTE 113 GM TUBE TOP SCH (11:05)
== END 2019-04-15 12:09 | DRG 689 ==
LOC: N.5E → SUATTDRO 14:12 → N.ICU 03-29 09:57 → N.5E 04-09 14:01
PROVIDERS: ADMIT Internal Medicine; ATTEND Internal Medicine